=== PATIENT | female | born 1980 | race Caucasian/White ===

== ENCOUNTER 2020-12-22 13:36 | Emergency (ER) | payer OTHER, SELFPAY ==
[2020-12-22 13:53] VITALS: BP 125/81; PULSE 65; RESP 18; TEMP 36.7; O2SAT 99
--- NOTE | 2020-12-22 14:24 | ED.URI ---
HPI - URI/Sore Throat General Chief Complaint: Upper Respiratory Infection Stated Complaint: sore throat,fever Time Seen by Provider: 12/22/20 14:14 Source: patient and RN notes reviewed Mode of arrival: ambulatory Limitations: no limitations History of Present Illness HPI Narrative: 40-year-old female presents with concern for sore throat, fatigue, headache, body aches, intermittent nausea. Reports symptoms started 4 days ago. Reports she has not been vaccinated for Covid, she had Covid in March 2020. Reports recent travel. Reports she has been taking Tylenol and for her symptoms. She denies cough, shortness of breath, loss of sense of taste or smell, sinus drainage, tenderness. MD elicited complaint: sore throat Related Data Home Medications Medication Instructions Recorded Confirmed duloxetine 30 mg PO DAILY 12/22/20 12/22/20 famotidine 20 mg PO BID 12/22/20 12/22/20 metoprolol tartrate 12.5 mg PO BID 12/22/20 12/22/20 omeprazole 20 mg PO DAILY 12/22/20 12/22/20 topiramate 25 mg PO BID 12/22/20 12/22/20 trazodone 100 mg PO HS 12/22/20 12/22/20 Allergies Allergy/AdvReac Type Severity Reaction Status Date / Time metoclopramide Allergy Mild Unknown Verified 12/22/20 13:58 Sulfa (Sulfonamide Allergy Unknown Unknown Verified 12/22/20 13:58 Antibiotics) Review of Systems Review of Systems: CONSTITUTIONAL: Reports fatigue, malaise, or fever. EYES: Denies visual changes, redness, or discharge. ENT: Denies rhinorrhea, congestion, sinus pain, otalgia reports sore throat. CARDIOVASCULAR: Denies chest pain, palpitations, or edema. RESPIRATORY: Denies cough or dyspnea. GASTROINTESTINAL: Denies abdominal pain, nausea, vomiting, diarrhea SKIN: Denies rash or itching. MUSCULOSKELETAL: Reports myalgia. NEUROLOGIC: Reports headache. All systems reviewed & are unremarkable except as noted in HPI and below PMFSH Social History Social History Gender identity (if verbalized by the patient): Female Comments At time of signature, agree with nursing past medical, surgical, social and family history. There is no relevant family history pertinent to the presenting complaint Exam Narrative: GENERAL: Nontoxic-appearing, well-nourished, and in no acute distress. HEAD: Normocephalic EYES: PERRLA, conjunctivae clear ENT: Nares clear. Mucous membranes moist. TM pearly coelho with sharp light reflex bilaterally; no tragal tenderness. Oropharynx erythematous without lesions. Tonsils not enlarged and without exudate, no drooling, no hoarseness, no trismus, uvula midline. NECK: Supple. No lymphadenopathy CHEST: Clear to auscultation, breath sounds equal. No wheezing, rhonchi, rales, or stridor. No respiratory distress, speaks in full sentences. HEART: Regular rate and rhythm. No murmur heard. SKIN: Warm, dry, no rash. NEURO: Alert and oriented x3. PSYCH: Normal mood and affect Course Course Emergency Course: Patient is aware of diagnosis, understands and agrees to treatment plan. Anticipatory guidance given. Patient agrees to follow-up as directed and is aware of reasons to seek care at the emergency department. Portions of this record may have been created with voice recognition software Vital Signs Vital signs: Vital Signs Temperature 98.1 F 12/22/20 13:53 Pulse Rate 65 12/22/20 13:53 Respiratory Rate 18 12/22/20 13:53 Blood Pressure 125/81 12/22/20 13:53 Pulse Oximetry 99 12/22/20 13:53 Temperature 98.1 F 12/22/20 13:53 Pulse Rate 65 12/22/20 13:53 Respiratory Rate 18 12/22/20 13:53 Blood Pressure 125/81 12/22/20 13:53 Pulse Oximetry 99 12/22/20 13:53 Reviewed. MDM - URI/Sore Throat MDM Narrative Medical decision making narrative: Differential diagnosis considered: [place] virus, strep pharyngitis, allergic rhinitis, upper respiratory tract infection, sinusitis, rhinosinusitis, nasopharyngitis. viral pharyngitis, otitis media, otitis externa, pneumonia, bronchitis, viral cough syndrome
[2020-12-25 01:23] LABS: SARS-CoV-2 RNA PCR Negative
== END 2020-12-22 14:33 | disposition home or self-care (01) ==
PROVIDERS: Emergency Provider Nurse Practitioner; PCP Family Medicine
DX: J06.9 Acute upper respiratory infection, unspecified (principal); Z20.822 Contact with and (suspected) exposure to COVID-19
CPT/HCPCS: 87081; 87426; 87880; 99213; C9803; G0463; U0003; U0005

== ENCOUNTER 2021-05-30 14:32 | Emergency (ER) | payer OTHER, SELFPAY ==
[2021-05-30 14:44] VITALS: BP 137/91; PULSE 78; RESP 18; TEMP 36.6; O2SAT 100
--- NOTE | 2021-05-30 14:54 | ED.GENADULT ---
HPI - General Adult General Chief complaint: Upper Respiratory Infection Stated complaint: fever,sorethroat,cough Source: patient Mode of arrival: ambulatory Limitations: no limitations History of Present Illness HPI narrative: 40 y/o female. PMHx HTN, GERD, Former smoker. Presents to [facility] today with acute complaints of nasal congestions, sore throat, cough, as well as subjective fever at home. Manifestations have been present for the past 24 hours. She adds that her symptoms have started after being exposed to Covid 19 viral illness while at work. No ROJAS, focal weakness. No neck pain, nuchal rigidity, dysphagia. No chest pain, dyspnea, wheezing, palpitations, edema. No GI upset. Client requests Covid 19 viral testing. She is without additional acute c/o illness upon PE. Related Data Home Medications Medication Instructions Recorded Confirmed famotidine 20 mg PO BID 12/22/20 05/30/21 metoprolol tartrate 12.5 mg PO BID 12/22/20 05/30/21 omeprazole 20 mg PO DAILY 12/22/20 05/30/21 meclizine 25 mg PO TID 05/30/21 05/30/21 Allergies Allergy/AdvReac Type Severity Reaction Status Date / Time metoclopramide Allergy Mild Unknown Verified 12/22/20 13:58 Sulfa (Sulfonamide Allergy Unknown Unknown Verified 12/22/20 13:58 Antibiotics) Penicillins AdvReac Nausea and Verified 05/30/21 14:52 Vomiting Review of Systems Review of Systems: CONSTITUTIONAL: Positive fever. No chills, sweats. EYES: Denies visual changes, redness, discharge. ENT: Positve rhinorrhea, congestion, sore throat. No otalgia. CARDIOVASCULAR: Denies chest pain, palpitations, edema. RESPIRATORY: Denies dyspnea, wheezing. Positive cough GASTROINTESTINAL: Denies abdominal pain, nausea, vomiting, diarrhea. GENITOURINARY: Denies dysuria, hematuria, abnormal discharge SKIN: Denies rash or itching. MUSCULOSKELETAL: Denies acute back pain, joint pain, or myalgia. NEUROLOGIC: Denies numbness, or focal weakness. PSYCHIATRIC: Denies anxiety or depression. All systems reviewed & are unremarkable except as noted in HPI and below PMFSH Social History Social History Gender identity (if verbalized by the patient): Female Exam Narrative: GENERAL: This is a well-nourished, well-developed adult, in no apparent distress. HEAD: normocephalic, atraumatic. EYES: PERRL. Sclera clear/white. EARS: External ears normal, auditory canals clear and without drainage, TMs normal. NOSE: External nose normal. Positive Rhinorrhea, no obstruction, nares patent. THROAT: Mucous membranes moist, posterior pharynx erythematous. No exudates. NECK: Neck supple, non-tender without lymphadenopathy, masses or thyromegaly. CARDIOVASCULAR: Regular rate and rhythm without murmurs, gallops, or rubs. RESPIRATORY: Clear to auscultation. Breath sounds equal bilaterally. No wheezes, rales, or rhonchi. GASTROINTESTINAL: Abdomen soft, non-tender, nondistended. Bowel sounds are active. No guarding. SKIN: warm, intact with no suspicious lesions or rash, good texture and turgor. NEURO: Alert, active, and age appropriate. No focal neurologic deficits. EXTREMITIES: Negative. Course Course Level of Care: Express Care Visit Vital Signs Vital signs: Vital Signs Temperature 36.6 C 05/30/21 14:44 Pulse Rate 78 05/30/21 14:44 Respiratory Rate 18 05/30/21 14:44 Blood Pressure 137/91 H 05/30/21 14:44 Pulse Oximetry 100 05/30/21 14:44 Temperature 36.6 C 05/30/21 14:44 Pulse Rate 78 05/30/21 14:44 Respiratory Rate 18 05/30/21 14:44 Blood Pressure 137/91 H 05/30/21 14:44 Pulse Oximetry 100 05/30/21 14:44 The patient has been informed that they may have pre-hypertension or Hypertension based on a BP reading in the clinic. It is recommended that the patient call the primary care provider listed on their discharge instructions or a physician of their choice as soon as possible (within 1-2
[2021-05-31 18:24] LABS: SARS-CoV-2 RNA PCR Positive
== END 2021-05-30 14:55 | disposition home or self-care (01) ==
PROVIDERS: Emergency Provider Nurse Practitioner Adult Health; PCP Family Medicine
DX: Z20.822 Contact with and (suspected) exposure to COVID-19 (principal)
CPT/HCPCS: 99213; C9803; G0463; U0003; U0005

== ENCOUNTER 2022-02-06 18:22 | Emergency (ER) | payer OTHER, SELFPAY ==
--- NOTE | 2022-02-06 18:27 | ED.LOWEXIN ---
HPI - Extremity Injury (Lower) General Chief Complaint: Extremity Injury, Lower Stated Complaint: rt leg pain Time Seen by Provider: 02/06/22 18:27 Source: patient Mode of arrival: ambulatory Limitations: no limitations History of Present Illness HPI Narrative: Ms. Weiss is a 41-year-old female patient presenting to the clinic today with complaints of right sided leg pain that began this afternoon. She reports that she noticed some swelling to the right posterior medial thigh this afternoon and the area is tender to touch. She denies any fever, chills, shortness of breath, or chest pain. States she does have a history of DVTs in her family however she has never had a DVT herself. History of hysterectomy and she is a non-smoker. Related Data Home Medications Medication Instructions Recorded Confirmed famotidine 20 mg tablet 20 mg PO BID 12/22/20 05/30/21 omeprazole 20 mg capsule,delayed 20 mg PO DAILY 12/22/20 05/30/21 release diltiazem HCl 30 mg tablet 30 mg TID 02/06/22 02/06/22 Allergies Allergy/AdvReac Type Severity Reaction Status Date / Time metoclopramide Allergy Mild Unknown Verified 02/06/22 18:39 Sulfa (Sulfonamide Allergy Unknown Unknown Verified 02/06/22 18:39 Antibiotics) Penicillins AdvReac Nausea and Verified 02/06/22 18:39 Vomiting Review of Systems Review of Systems: Pertinent positives per HPI. Patient denies any fever, chills, rash, headache, visual changes, dizziness, cough, runny nose, sore throat, shortness of breath, chest pain, palpitations, nausea, vomiting, diarrhea, constipation, abdominal pain, or any urinary issues. PMFSH Social History Social History Gender identity (if verbalized by the patient): Female Comments At the time of my signature, I reviewed and agree with the nursing past medical, surgical, social, and family history. There is no relevant family history pertinent to the patient complaint. Exam Narrative: General: Well-developed, well nourished, in no apparent distress Head: Normocephalic, atraumatic. Cardio: Regular rate and rhythm, s1 and s2 normal, no murmur appreciated. Resp: Clear to auscultation bilaterally, no rhonchi, rales, wheezing or rubs. Musculoskeletal: No deformity, 1 cm x 1 cm soft tissue swelling to the right posterior medial thigh -tender to palpation, grossly normal range of motion, muscle strength strong and equal, peripheral pulse strong, no edema, no cyanosis, normal gait and station Course Course Emergency Course: Portions of this record may have been created with voice recognition software. Level of Care: Express Care Visit Vital Signs Vital signs: Vital signs reviewed MDM - Extremity Injury (Lower) MDM Narrative Medical decision making narrative: At the time of visit patient is resting comfortably on the exam table. She has a tender 1 x 1 cm soft tissue swelling to the right posterior medial thigh-the area is not erythemic or red. There is no swelling in the right lower extremity. I suspect this may be onset of a soft tissue mass, cyst, or abscess. Discussed follow-up with PCP if symptoms persist or going to the emergency room if symptoms worsen and patient voiced understanding of the discharge instructions and agrees to treatment plan. I do not feel as though we need to send her to the ED for a ultrasound or Doppler at this time. Differential Diagnosis Differential diagnosis: Likely other (Soft tissue subcutaneous mass, cyst, abscess) Discharge Plan Discharge Clinical Impression: Subcutaneous mass of right lower extremity Patient Disposition: Home, Self-Care Condition: Stable Instructions: Antibiotic Form, Soft Tissue Mass (ED) Additional Instructions: This could possibly just be a start of a cyst or an abscess Recommend following up with PCP if symptoms worsen-May need ultrasound or Doppler of the area Follow-up with your PCP in 3 to 5
[2022-02-06 18:29] VITALS: BP 140/97; PULSE 89; RESP 18; TEMP 36.7; O2SAT 100
== END 2022-02-06 18:45 | disposition home or self-care (01) ==
PROVIDERS: Emergency Provider Nurse Practitioner Family; PCP Family Medicine
DX: R22.41 Localized swelling, mass and lump, right lower limb (principal); I34.1 Nonrheumatic mitral (valve) prolapse; Z87.891 Personal history of nicotine dependence; K21.9 Gastro-esophageal reflux disease without esophagitis; M79.7 Fibromyalgia; N80.9 Endometriosis, unspecified
CPT/HCPCS: 99212; G0463

== ENCOUNTER 2022-02-27 15:55 | Outpatient (CLI) | payer OTHER, SELFPAY ==
--- NOTE | ~2022-02-27 | US_ITS ---
EXAMINATION: US venous doppler [facility] DATE: 02/27/2022 16:32 INDICATION: Bilateral lower limb swelling TECHNIQUE: Grayscale ultrasound images without and with compression and Doppler ultrasound images of the bilateral lower extremity veins were obtained. COMPARISON: None. FINDINGS: The visualized portions of right common femoral vein, profunda (deep) femoral vein, femoral vein, pop liteal vein, posterior tibial veins, peroneal veins, gastrocnemius vein and greater saphenous vein ou tflow are patent. The visualized portions of left common femoral vein, profunda femoral vein, femoral vein, popliteal v ein, posterior tibial veins, peroneal veins, gastrocnemius vein and greater saphenous vein outflow ar e patent. IMPRESSION: 1. No deep venous thrombosis in either lower limb. Reviewed, dictated and finalized at location A.
== END 2022-02-27 15:56 | disposition home or self-care (01) ==
LOC: ANHIMG 15:59
PROVIDERS: PCP Family Medicine; Visit Provider Family Medicine
DX: M79.89 Other specified soft tissue disorders (principal)
CPT/HCPCS: 93970

== ENCOUNTER 2022-04-30 15:48 | Emergency (ER) | payer OTHER, SELFPAY ==
--- NOTE | ~2022-04-30 | XR_ITS ---
EXAMINATION: XR chest 2V DATE: 04/30/2022 16:48 INDICATION: Right middle lobe coarseness and cough TECHNIQUE: PA and lateral views of the chest are obtained. COMPARISON: 03/12/2019 FINDINGS: The lungs are free of acute opacities. No pleural effusion or pneumothorax. The cardiomedia stinal silhouette is normal. There is mild thoracic spondylosis. IMPRESSION: 1. No acute cardiopulmonary abnormality. Reviewed, dictated and finalized at location B. [employer]
[2022-04-30 16:07] VITALS: BP 127/83; PULSE 86; RESP 18; TEMP 36.9; O2SAT 99
--- NOTE | 2022-04-30 16:29 | ED.URI ---
HPI - URI/Sore Throat General Chief Complaint: Upper Respiratory Infection Stated Complaint: sorethroat,cough Time Seen by Provider: 04/30/22 16:29 Source: patient, RN notes reviewed and old records reviewed Mode of arrival: ambulatory Limitations: no limitations History of Present Illness HPI Narrative: 41-year-old female who presents to [facility] with complaints of sore throat which started on Thursday with cough starting on Thursday which is tight frequent and hacking. Patient states she has a lot of sinus drainage also which is very thick. Patient reports she has a history of bronchitis and she is not sleeping well due to cough. Patient reports that she has no fever, body aches or chills, reports general malaise and fatigue. Patient states that she has been taking Benadryl and using nasal spray. MD elicited complaint: cough, sore throat, rhinorrhea and nasal congestion Pertinent past history: other (bronchitis) Onset (ago): day(s) (5) Able to tolerate fluids by mouth: Yes Treatments prior to arrival: other (Benadryl,nasal spray and cough drops) Related Data Home Medications Medication Instructions Recorded Confirmed famotidine 20 mg tablet 20 mg PO BID 12/22/20 04/30/22 omeprazole 20 mg capsule,delayed 20 mg PO DAILY 12/22/20 04/30/22 release diltiazem HCl 30 mg tablet 30 mg TID 02/06/22 04/30/22 Allergies Allergy/AdvReac Type Severity Reaction Status Date / Time metoclopramide Allergy Mild Unknown Verified 04/30/22 17:20 Sulfa (Sulfonamide Allergy Unknown Unknown Verified 04/30/22 17:20 Antibiotics) Penicillins AdvReac Nausea and Verified 04/30/22 17:20 Vomiting Review of Systems Review of Systems: CONSTITUTIONAL: Reports malaise, no chills, sweats, or fever.fatigue reported EYES: Denies visual changes, redness, or discharge. ENT: Reports rhinorrhea, congestion, sinus pain, no otalgia positive for sore throat. CARDIOVASCULAR: Denies chest pain, palpitations, or edema. RESPIRATORY: Reports cough, hacking? Denies dyspnea. GASTROINTESTINAL: Denies abdominal pain, nausea, vomiting, diarrhea SKIN: Denies rash or itching. MUSCULOSKELETAL: Denies myalgia. NEUROLOGIC: Reports mild headache. All systems reviewed & are unremarkable except as noted in HPI and below PMFSH Past Medical History Medical History (Updated 05/01/22 @ 08:14 by Becky Kessler NP) Bronchitis GERD (gastroesophageal reflux disease) Hypertension Surgical History Surgical History (Updated 05/01/22 @ 08:13 by Becky Kessler NP) H/O: hysterectomy Hx of appendectomy Hx of cholecystectomy Hx of left knee surgery Hx of spinal surgery Social History Social History (Updated 05/01/22 @ 08:10 by Becky Kessler NP) Smoking status: Former smoker Tobacco type: cigarettes Alcohol intake: unknown Substance use type: does not use Gender identity (if verbalized by the patient): Female Comments At time of signature, agree with nursing past medical, surgical, social and family history. There is no relevant family history pertinent to the presenting complaint Exam Narrative: GENERAL: Well-appearing, well-nourished, and in no acute distress. HEAD: Normocephalic EYES: PERRLA, conjunctivae clear ENT: Nares clear, turbinates edematous and erythematous, thick yellow tinged discharge. Mucous membranes moist. TM pearly coelho with dull light reflex bilaterally; no tragal tenderness. Oropharynx erythematous without lesions. Tonsils red,not enlarged and without exudate, no drooling, no hoarseness, no trismus, uvula midline.post nasal drainage. NECK: Supple. No lymphadenopathy CHEST: Clear to auscultation, breath sounds equal. No wheezing, rhonchi, rales, or stridor. No respiratory distress, speaks in full sentences. HEART: Regular rate and rhythm. No murmur heard. SKIN: Warm, dry, no rash. NEURO: Alert and oriented x3. PSYCH: Normal mood and affect Course Course Emergency Course: [place]
== END 2022-04-30 17:29 | disposition home or self-care (01) ==
PROVIDERS: Emergency Provider Registered Nurse; PCP Family Medicine
DX: J40 Bronchitis, not specified as acute or chronic (principal); J32.9 Chronic sinusitis, unspecified; I10 Essential (primary) hypertension; K21.9 Gastro-esophageal reflux disease without esophagitis; Z87.891 Personal history of nicotine dependence
CPT/HCPCS: 71046; 87081; 87880; 99213; G0463

== ENCOUNTER 2022-08-28 01:27 | Day surgery (SDC) | payer OTHER, SELFPAY ==
[2022-08-20 12:27] VITALS: BMI 31.1
--- NOTE | 2022-08-27 20:26 | PM.HPGS ---
History of Present Illness History of Present Illness Consent: Risks, benefits, and alternatives have been discussed and questions answered. Patient agrees to proceed with procedure. Chief complaint: Other fecal abnormalities Narrative: Brenda Weiss is a 41 year old female referred for colonoscopy. She has had a change in her bowel habits. For 1 thing she needs to insert her finger into the vagina to help the stool come out. She has had pain in the anal area. She saw a surgeon who said she has a slight tear but not significant. She has pain in the perineal area which is present not only with bowel movements. His a sharp stabbing pain that comes on spontaneously. Review of Systems Review of Systems: All systems reviewed & are unremarkable except as noted in HPI and below PMFSH Past Medical History Medical History Bronchitis GERD (gastroesophageal reflux disease) History of blood transfusion Hypertension IBS (irritable bowel syndrome) Premature ventricular contraction Watermelon stomach Surgical History Surgical History H/O: hysterectomy Hx of appendectomy Hx of cholecystectomy Hx of left knee surgery Hx of spinal surgery Family History Family History Father Acute myocardial infarction Hypertension Unknown Diabetes mellitus Grandparent Carcinoma of colon Sibling Hypertension Social History Social History Smoking packs per day: 0.5 Smoking cigarettes per day: 10.0 Years smoked: 20 Smoking pack-years: 10.00 Smoking status: Former smoker Tobacco type: cigarettes Smoking end date: 05/04/15 Alcohol intake: current Alcohol use details: socially Substance use: never Substance use type: does not use Living arrangements: with family Gender identity (if verbalized by the patient): Female Spiritual care concerns: No Meds Home Medications and Allergies Home Medications Medication Instructions Recorded Confirmed Type diltiazem HCl 30 mg tablet 30 mg PO .COMPLEX 08/13/22 08/28/22 History docusate sodium 100 mg capsule 100 mg PO BID #90 caps 08/13/22 08/20/22 Rx famotidine 20 mg tablet 40 mg PO BID 08/13/22 08/20/22 History omeprazole 20 mg capsule,delayed 40 mg PO DAILY 08/13/22 08/20/22 History release Allergies Allergy/AdvReac Type Severity Reaction Status Date / Time metoclopramide Allergy Mild Unknown Verified 08/28/22 10:33 Sulfa (Sulfonamide Allergy Unknown Unknown Verified 08/28/22 10:33 Antibiotics) Exam Resp: Auscultation: clear to auscultation bilaterally Cardio: Rate: regular rate Rhythm: regular rhythm GI: GI Palp: Yes Soft to palpation and No Tenderness to palpation present (GI) Assessment and Plan Assessment and plan (1) Change in stool: Code(s): R19.5 - Other fecal abnormalities Status: Acute Assessment and Plan: Colonoscopy with possible biopsy or polypectomy or cautery or injection of substances.
[2022-08-28] MEDS: LACTATED RINGERS 1,000 ML 150 ML IV CONT (10:42)
[2022-08-28 10:45] VITALS: BP 123/86; PULSE 86; RESP 18; TEMP 36.1; O2SAT 100
--- NOTE | 2022-08-28 10:53 | WPDANESEPPF ---
Anes - Initial Pre Proc Eval Procedure: Operation Date: 08/28/22 12:00 Proposed Procedures p Colonoscopy - Osmar Sandhu MD Date/Time: 08/28/22 10:53 Surgeon: Osmar Sandhu MD Pre Op Diagnosis: Other fecal abnormalities Patient Data Age: 41 Gender: F Height: 1.65 m Weight: 53.3 kg Last Vital Signs Temp 36.1 C L 08/28/22 10:45 Pulse 86 08/28/22 10:45 Resp 18 08/28/22 10:45 BP 123/86 08/28/22 10:45 Pulse Ox 100 08/28/22 10:45 O2 Del Method Room Air 08/28/22 10:45 Allergies Allergy/AdvReac Type Severity Reaction Status Date / Time metoclopramide Allergy Mild Unknown Verified 08/28/22 10:33 Sulfa (Sulfonamide Allergy Unknown Unknown Verified 08/28/22 10:33 Antibiotics) Home Medications Medication Instructions Recorded Confirmed Type diltiazem HCl 30 mg tablet 30 mg PO .COMPLEX 08/13/22 08/28/22 History docusate sodium 100 mg capsule 100 mg PO BID #90 caps 08/13/22 08/20/22 Rx famotidine 20 mg tablet 40 mg PO BID 08/13/22 08/20/22 History omeprazole 20 mg capsule,delayed 40 mg PO DAILY 08/13/22 08/20/22 History release Patient hx anesthesia problems: post op nausea/vomiting Family hx anesthesia problems: none Results Review: All pre-operative results and documents have been reviewed as part of the pre-operative evaluation. [facility] Past Medical History Medical History Bronchitis GERD (gastroesophageal reflux disease) History of blood transfusion Hypertension IBS (irritable bowel syndrome) Premature ventricular contraction Watermelon stomach Surgical History Surgical History H/O: hysterectomy Hx of appendectomy Hx of cholecystectomy Hx of left knee surgery Hx of spinal surgery Family History Family History Father Acute myocardial infarction Hypertension Unknown Diabetes mellitus Grandparent Carcinoma of colon Sibling Hypertension Social History Social History Smoking packs per day: 0.5 Smoking cigarettes per day: 10.0 Years smoked: 20 Smoking pack-years: 10.00 Smoking status: Former smoker Tobacco type: cigarettes Smoking end date: 05/04/15 Alcohol intake: current Alcohol use details: socially Substance use: never Substance use type: does not use Living arrangements: with family Gender identity (if verbalized by the patient): Female Spiritual care concerns: No Anes - Eval Final PreProcedure Day of Procedure 08/28/22 10:53 Patient weight: normal Heart: regular rate and rhythm Lungs: clear to auscultation Airway: Mallampati scale class II Neurological: alert and oriented Last oral intake: >/= 8 hours ASA classification: III Emergent: no Anesthetic plan: proceed Anesthesia type and monitoring: general GIVS and standard monitoring Results Review: All pre-operative results and documents have been reviewed as part of the pre-operative evaluation. Informed Consent: The patient's anesthetic plan and its attendant risks and benefits were discussed with the patient/family/POA. Questions were solicited and answers provided to the satisfaction of the patient/family/POA.
[2022-08-28 11:12] VITALS: BP 104/71; PULSE 75; RESP 20; O2SAT 98
[2022-08-28 11:22] VITALS: BP 111/75; PULSE 76; RESP 15; O2SAT 98
[2022-08-28 11:33] VITALS: BP 122/84; PULSE 80; RESP 17; O2SAT 100
== END 2022-08-28 12:13 | disposition home or self-care (01) ==
PROVIDERS: PCP Family Medicine; Visit Provider Internal Medicine Gastroenterology
PROC: 0DJD8ZZ Inspection of Lower Intestinal Tract, Via Natural or Artificial Opening Endoscopic (ICD-10-PCS; CPT 45378; principal; 2022-08-28 12:00)
DX: Z12.11 Encounter for screening for malignant neoplasm of colon (principal); R19.4 Change in bowel habit; K21.9 Gastro-esophageal reflux disease without esophagitis; I10 Essential (primary) hypertension; Z87.891 Personal history of nicotine dependence
CPT/HCPCS: 45378; J2704; J7120

== ENCOUNTER 2022-09-02 09:28 | Outpatient (CLI) | payer OTHER, SELFPAY ==
--- NOTE | 2022-09-02 09:42 | ECG_ITS ---
Measurements Intervals [place] Rate: 64 P: 45 MT: 151 QRS: 45 QRSD: 78 T: 54 QT: 373 QTc: 387 Interpretive Statements SINUS RHYTHM BASELINE ARTIFACT- I, II, III, AVR, AVL, AVF NORMAL ECG NO PREVIOUS ECG AVAILABLE FOR COMPARISON Electronically Signed On 09-02-2022 11:22:27 CDT by Nghia Mcgovern D.O.
[2022-09-02 10:03] LABS: Basophils Absolute Auto 0.1 K/mm3 (0.0-0.1); Basophils Percent Auto 0.9 % (0.2-1.2); Eosinophils Absolute Auto 0.1 K/mm3 (0-0.3); Eosinophils Percent Auto 1.9 % (0-4.4); Hematocrit 38.8 % (37.0-47.0); Hemoglobin 13.3 g/dL (12.0-15.0); Immature Granulocyte Absolute 0.01 K/mm3 (0.00-0.031); Immature Granulocyte Percent A 0.2 % (0-0.5); Lymphocytes Percent Auto 35.3 % (18.3-44.2); Mean Corpuscular HGB Conc 34.3 g/dl (32-36); Mean Corpuscular Hemoglobin 29.8 pg (26-34); Mean Corpuscular Volume 86.8 fl (80-100); Mean Platelet Volume 11.8 fl (7.4-10.4); Monocytes Absolute Auto 0.5 K/mm3 (0.1-0.6); Monocytes Percent Auto 8.3 % (2.6-8.5); Neutrophils Percent Auto 53.4 % (45.5-73.1); Platelet Count Result 224 k/mm3 (150-375); Red Blood Count 4.47 M/mm3 (4.2-5.4); Red Cell Distribution Width 13.5 % (11.5-14.5); White Blood Count 5.7 K/mm3 (4.5-10.0)
== END 2022-09-02 09:29 | disposition home or self-care (01) ==
LOC: ANHSURGERY 09:32
PROVIDERS: PCP Family Medicine; Visit Provider Obstetrics & Gynecology
DX: Z01.812 Encounter for preprocedural laboratory examination (principal); Z01.810 Encounter for preprocedural cardiovascular examination; N81.6 Rectocele; I49.3 Ventricular premature depolarization
CPT/HCPCS: 36415; 85025; 86850; 86900; 86901; 93005

== ENCOUNTER 2022-09-08 00:16 | Day surgery (SDC) | payer OTHER, SELFPAY ==
[2022-09-01 13:02] VITALS: BMI 30.8
--- NOTE | 2022-09-01 13:09 | PC.NURSE ---
Report to the Outpatient Waiting Room, entrance under the green pavilion located off [facility], at time 6:00 on date 09/08/22. Planned Procedure Time: 7:30. Time changes happen often and if your time is changed the preop area will call you the afternoon before. - You and your visitor will be asked to self-screen and do not enter if you have any COVID symptoms. - A mask is optional within the hospital at this time. Patients may have clear liquids (water, carbonated beverages, clear teas, apple juice) until 3 hours prior to surgery (4:30) with a maximum of 20 ounces. - No food from midnight until time of surgery Take the following medications with a SIP of water the morning of surgery: DILTIAZEM DO NOT STOP ANY OF YOUR OTHER PRESCRIPTION MEDICATIONS PRIOR TO SURGERY EXCEPT THE FOLLOWING Medications to discontinue per physician: N/A Date to take last dose: N/A Please no make-up, nail gibraltarian, hairspray, perfume, deodorant, or body powder the day of surgery. No jewelry (including any body piercings) or valuables the day of surgery, leave them at home. Please take a shower or bath the night before, or the morning of, surgery with an antibacterial soap. Wear comfortable, loose fitting clothing. - Jewelry must be removed prior to entering the operating room. Rings and piercings that are not removed may be cut off. - The hospital will not accept responsibility for valuables. - Please leave all valuables, including medications, at home the day of surgery. If you are going home after surgery, a licensed spike driver must drive you home. - NO public transportation without another adult if you receive anesthesia. - We recommend that an adult stay with you for 24 hours following discharge. - We also recommend that you do not drive, make important decision, drink alcoholic beverages, or take any drugs that were not prescribed by your health care provider for at least 24 hours after your discharge time. Follow any additional instructions given to you from your surgeon. If you or anyone in your household have experienced Covid symptoms in the past week, please notify your surgeon or the nurse liaison at the phone number below for possible testing. Telephone instructions given to PT - DIYA STODDARD and asked if any additional questions and then verbalized understanding. Patient advised to call surgeon office or pre surgery nurse liaison [phone] if any additional questions.
--- NOTE | 2022-09-05 09:46 | P.HP_ITS ---
H&P: HPI History of Present Illness Date/Time: 09/05/22 09:46 Chief Complaint: pelvic pain/ rectocele/stress incontinence Narrative: said 41-year-old female status post hysterectomy bilateral salpingo-oophorecto my admitted for DVT laparoscopy and rectocele repair. [facility] Past Medical History Medical History Bronchitis GERD (gastroesophageal reflux disease) History of blood transfusion Hypertension IBS (irritable bowel syndrome) Premature ventricular contraction Watermelon stomach Surgical History Surgical History H/O: hysterectomy Hx of appendectomy Hx of cholecystectomy Hx of left knee surgery Hx of spinal surgery Family History Family History Father Acute myocardial infarction Hypertension Unknown Diabetes mellitus Grandparent Carcinoma of colon Sibling Hypertension Social History Social History Smoking packs per day: 0.5 Smoking cigarettes per day: 10.0 Years smoked: 20 Smoking pack-years: 10.00 Smoking status: Former smoker Tobacco type: cigarettes Smoking end date: 05/04/18 Alcohol intake: current Alcohol use details: 2/MONTH Substance use: never Substance use type: does not use Living arrangements: with family Gender identity (if verbalized by the patient): Female Spiritual care concerns: No Meds Home Medications and Allergies Home Medications Medication Instructions Recorded Confirmed Type diltiazem HCl 30 mg tablet 30 mg PO .COMPLEX 08/13/22 09/01/22 History docusate sodium 100 mg capsule 100 mg PO BID #90 caps 08/13/22 09/01/22 Rx famotidine 20 mg tablet 40 mg PO BID 08/13/22 09/01/22 History omeprazole 20 mg capsule,delayed 40 mg PO DAILY 08/13/22 09/01/22 History release Allergies Allergy/AdvReac Type Severity Reaction Status Date / Time metoclopramide Allergy Mild Other Verified 09/01/22 13:02 Sulfa (Sulfonamide Allergy Unknown Unknown Verified 09/01/22 13:02 Antibiotics) Exam Const: General: cooperative, healthy appearing and comfortable Nutritional Appearance: average body habitus Orientation/consciousness: oriented to person, oriented to place and oriented to time Resp: Effort & Inspection: normal respiratory effort Cardio: Rate: regular rate Rhythm: regular rhythm Heart sounds: S1 normal heart sound present and S2 normal heart sound present GI: Inspection: normal to inspection : External Female Exam: normal external appearance Speculum Exam - Vagina: normal appearance of the vagina and other (Small rectocele) Speculum Exam - Cervix: Cervix absent Bimanual exam- vagina & uterus: uterus absent Bimanual Exam- Adnexa, other: normal adnexae Assessment and Plan Assessment and plan (1) Rectocele: Code(s): N81.6 - Rectocele Status: Acute (2) TAWANNA (stress urinary incontinence, female): Code(s): N39.3 - Stress incontinence (female) (male) Status: Acute (3) Pelvic pain: Code(s): R10.2 - Pelvic and perineal pain Status: Acute Plan laparoscopy/ rectocele repair/ suburethral sling
[2022-09-08] VITALS (16 sets, daily range): BP systolic 92–127; BP diastolic 57–82; PULSE 65–97; RESP 14–22; TEMP 36.2–37; O2SAT 97–100
--- NOTE | 2022-09-08 06:24 | WPDHPUPDATE1 ---
History and Physical Update Update Date/Time: 09/08/22 06:24 History and Physical has been reviewed, including an updated exam of the patient. There are NO changes in the patient's condition. Risks, benefits, and alternatives have been discussed and questions answered. Patient agrees to proceed with procedure.
[2022-09-08] MEDS: LACTATED RINGERS 1,000 ML 30 ML IV CONT ×2 (06:27→09:57)
[2022-09-08] MEDS: KETOROLAC 15 MG/ML VIAL (*BKC) IV PUSH (06:32)
[2022-09-08] MEDS: SCOPOLAMINE 1.5 MG PATCH TRANSDERM (06:32)
[2022-09-08] MEDS: ACETAMINOPHEN 500 MG TABLET 1000 MG PO (06:32)
--- NOTE | 2022-09-08 07:44 | WPDANESEPPF ---
Anes - Initial Pre Proc Eval Procedure: Operation Date: 09/08/22 07:30 Proposed Procedures p Laparoscopic Lysis of Adhesions, - Kevin Rob MD s Rectocele Repair with Tension Free Vaginal Taping - Kevin Rob MD Date/Time: 09/08/22 07:44 Surgeon: Kevin Rob MD Pre Op Diagnosis: pelvic pain, ulises, rectocele Patient Data Age: 41 Gender: F Height: 1.65 m Weight: 83.8 kg Last Vital Signs Temp 36.2 C L 09/08/22 06:17 Pulse 72 09/08/22 06:17 Resp 16 09/08/22 06:17 BP 127/82 09/08/22 06:17 Pulse Ox 100 09/08/22 06:17 O2 Del Method Room Air 09/08/22 06:17 Allergies Allergy/AdvReac Type Severity Reaction Status Date / Time metoclopramide Allergy Mild Other Verified 09/08/22 07:04 Sulfa (Sulfonamide Allergy Unknown Unknown Verified 09/08/22 07:04 Antibiotics) Home Medications Medication Instructions Recorded Confirmed Type diltiazem HCl 30 mg tablet 30 mg PO .COMPLEX 08/13/22 09/08/22 History docusate sodium 100 mg capsule 100 mg PO BID #90 caps 08/13/22 09/08/22 Rx famotidine 20 mg tablet 40 mg PO BID 08/13/22 09/08/22 History omeprazole 20 mg capsule,delayed 40 mg PO DAILY 08/13/22 09/08/22 History release hydrocodone 5 mg-acetaminophen 325 1 tablet PO Q4H PRN pain #20 tabs 09/08/22 Rx mg tablet Patient hx anesthesia problems: none Family hx anesthesia problems: none Results Review: All pre-operative results and documents have been reviewed as part of the pre-operative evaluation. [facility] Past Medical History Medical History Bronchitis GERD (gastroesophageal reflux disease) History of blood transfusion Hypertension IBS (irritable bowel syndrome) Premature ventricular contraction Watermelon stomach Surgical History Surgical History H/O: hysterectomy Hx of appendectomy Hx of cholecystectomy Hx of left knee surgery Hx of spinal surgery Family History Family History Father Acute myocardial infarction Hypertension Unknown Diabetes mellitus Grandparent Carcinoma of colon Sibling Hypertension Social History Social History Smoking packs per day: 0.5 Smoking cigarettes per day: 10.0 Years smoked: 20 Smoking pack-years: 10.00 Smoking status: Former smoker Tobacco type: cigarettes Smoking end date: 05/04/18 Alcohol intake: current Alcohol use details: 2/MONTH Substance use: never Substance use type: does not use Living arrangements: with family Gender identity (if verbalized by the patient): Female Spiritual care concerns: No Anes - Eval Final PreProcedure Day of Procedure 09/08/22 07:44 Patient weight: obese Heart: regular rate and rhythm Lungs: clear to auscultation Airway: Mallampati scale class II Neurological: alert and oriented Last oral intake: >/= 8 hours ASA classification: III Emergent: no Anesthetic plan: proceed Anesthesia type and monitoring: general ETT and standard monitoring Results Review: All pre-operative results and documents have been reviewed as part of the pre-operative evaluation. Informed Consent: The patient's anesthetic plan and its attendant risks and benefits were discussed with the patient/family/POA. Questions were solicited and answers provided to the satisfaction of the patient/family/POA.
[2022-09-08] MEDS: ceFAZolin 2 GM/D5W 50 ML 2 GM/50 ML BAG IVPB (08:09)
--- NOTE | 2022-09-08 09:32 | P.OP_ITS ---
Procedure Note - Detailed Date of Procedure 09/08/22 Pre-op Diagnosis pelvic pain, ulises, rectocele Post-op Diagnosis Other (Pelvic adhesions) Procedure Performed laparoscopic extensive lysis of adhesions/ cystoscopy/ tension-free vaginal tape/posterior repair Surgeon Kevin Rob MD Anesthesia General Indications this is a 41-year-old female status post hysterectomy bilateral salpingo- oophorectomy with pelvic pain and suspected adhesions, stress urinary incontinence, and a very small rectocele Findings pelvic adhesions were seen to the anterior abdominal wall. Uterus ovaries and tubes surgically absent. Description of Procedure Patient was prepped and draped in the normal sterile fashion placed in dorsal lithotomy position. Under excellent general trach anesthesia weighted speculum placed in posterior fornix vagina. Bladder draining clear urine old sponge stick was placed. The weighted speculum removed and gloves were changed. A supraumbilical incision made the Veress needle the. Abdomen filled with CO2 gas [id number]. The 5mm trocar advanced under direct visualization assuring no injury. A left lower quadrant incision made and the trocar the 5mm trocar advanced in the abdomen under direct visualization assuring no injury. A right lower quadrant incision made the 5mm trocar advanced under direct visualization. Anteriorly there were large amount of pelvic adhesions using the Melo stretch and sharply dissecting these were sharply dissected away from the left lateral sidewall in the anterior and abdomen. Irrigation was undertaken until clear and the uterine pelvis appeared clear at that point. The patient was returned back to supine to supine position. The trocars removed after removing gas from the abdomen. The incisions closed with 4 Monocryl and glue. Attention was turned to the vaginal portion of the procedure. Bladder was drained of clear urine with an 18 [place] catheter. A and infra urethral incision made and the lateral bladder space and by blunt dissection. The bladder catheter guide was placed and the urethra retracted laterally the left retropubic bladder space entered followed by entry in the right retropubic bladder space and entering through the fascia and skin bilaterally. The 18 [place] catheter was removed and the 75degree scope was placed no injury seen. This was removed the catheter was replaced. The tension-free tape was brought up to the tightness of an open pee on clamped. This plastic removed and tape cut at the surface of the suprapubic area. These were glued and 3-0 Vicryl was used to close the small suburethral incision. Attention was then turned to the posterior para there was a very small rectocele present. The perineal body was grasped and enio shape formed. Sharply dissecting and the und erlying peritoneum from the mucosa was undertaken. This was brought up to top the vagina the muscles were brought medially by [id number] Vicryl sh. This was followed by trimming the excess vaginal tissue and closing in continuous running all locking fashion from superior portion to most caudal position all pedicles appeared dry. The blood loss for the procedure was 100cc. Sponge, needle, instrument counts were correct. There were no immediate complications Estimated Blood Loss 1 IV Fluids 100 Drains No Packing No Pathology Yes Complications No immediate complications Condition Stable Disposition PACU
[2022-09-08] MEDS: ONDANSETRON INJ 4 MG/2 ML VIAL IV PUSH ×2 (09:42→15:52)
[2022-09-08] MEDS: fentaNYL CITRATE INJ (*CRX) 100 MCG/2 ML VIAL 25 MCG IV PUSH ×8 (09:44→10:13)
[2022-09-08] MEDS: HYDROmorphone HCL INJ (*CRX) 1 MG/ML SYR 0.5 MG IV PUSH ×4 (10:21→11:17)
[2022-09-08] MEDS: diphenhydrAMINE HCl INJ 50 MG/ML VIAL 25 MG IV PUSH (10:52)
[2022-09-08] MEDS: FAMOTIDINE 20 MG/2 ML VIAL IV PUSH (11:14)
[2022-09-08] MEDS: KETOROLAC 30 MG/ML VIAL (*BKC) IV PUSH ×2 (12:43→19:18)
[2022-09-08] MEDS: DEXTROSE 5%/LACTATED RINGERS 1,000 ML 125 ML IV CONT ×2 (12:44→21:12)
[2022-09-08] MEDS: MEPERIDINE HCL INJ (*CRX) 50 MG/ML AMPUL 25 MG IV PUSH ×2 (13:59→17:59)
[2022-09-08] MEDS: DOCUSATE SODIUM 100 MG CAPSULE PO (17:59)
[2022-09-08] MEDS: dilTIAZem HCL 30 MG TABLET PO (18:01)
[2022-09-08] MEDS: PROMETHAZINE HCL 25 MG/ML AMPUL 12.5 MG IV PUSH (19:19)
[2022-09-09] VITALS: BP 99/61; PULSE 61; RESP 18; TEMP 36.4; O2SAT 98
[2022-09-09] MEDS: KETOROLAC 30 MG/ML VIAL (*BKC) IV PUSH (02:40)
[2022-09-09 04:00] VITALS: BP 95/50; PULSE 66; RESP 18; TEMP 36.5; O2SAT 98
--- NOTE | 2022-09-09 06:13 | PM.GYNPNOP ---
RAIL CAR OPERATOR - A/P Postoperative Procedures: Procedures Operation Date: 09/08/22 08:00 Actual Procedure Side Surgeon p Laparoscopic Lysis of Adhesions, Not Applicable Kevin Rob MD s Rectocele Repair with Tension Free Vaginal Taping Not Applicable Kevin Rob MD Postoperative day: 1 Postoperative status: doing well Postoperative plan: routine post-op care, see orders and discharge Time Spent With Patient Time: Total time spent is greater than 50% in coordination of care (as documented) at patient's floor/unit and/or counseling patient: Time with patient: less than 15 minutes RAIL CAR OPERATOR- PN:Subj Post-Op Subjective Date/time seen: 09/09/22 06:13 Subjective: patient reports feeling better, pain is well controlled and patient is tolerating oral intake Exam Const: General: cooperative, healthy appearing and comfortable Nutritional Appearance: average body habitus Orientation/consciousness: oriented to person, oriented to place and oriented to time HENMT: Head: normal to inspection Resp: Effort & Inspection: normal respiratory effort Cardio: Rate: regular rate Rhythm: regular rhythm Heart sounds: S1 normal heart sound present and S2 normal heart sound present GI: Inspection: normal to inspection and incision (cdi) RAIL CAR OPERATOR - PN: Obj Data Vital Signs Vital Signs: Vital Signs - 24 hr 09/08/22 06:17 09/08/22 09:35 09/08/22 09:45 Temperature 97.1 F L 98.2 F Pulse Rate 72 97 93 Respiratory Rate 16 20 18 Blood Pressure 127/82 110/73 122/80 Pulse Oximetry 100 100 100 Oxygen Delivery Room Air Simple Face Mask Simple Face Mask Oxygen Flow Rate 8 8 09/08/22 10:00 09/08/22 10:15 09/08/22 10:30 Temperature Pulse Rate 66 77 80 Respiratory Rate 16 18 20 Blood Pressure 123/77 112/73 112/73 Pulse Oximetry 100 100 99 Oxygen Delivery Nasal Cannula Nasal Cannula Nasal Cannula Oxygen Flow Rate 2 2 2 09/08/22 10:45 09/08/22 11:00 09/08/22 11:15 Temperature Pulse Rate 88 68 83 Respiratory Rate 20 20 18 Blood Pressure 116/79 113/71 115/60 Pulse Oximetry 99 98 98 Oxygen Delivery Nasal Cannula Nasal Cannula Nasal Cannula Oxygen Flow Rate 2 2 2 09/08/22 11:30 09/08/22 11:45 09/08/22 12:00 Temperature Pulse Rate 68 96 67 Respiratory Rate 14 19 22 H Blood Pressure 108/63 112/69 108/57 L Pulse Oximetry 98 98 97 Oxygen Delivery Nasal Cannula Nasal Cannula Nasal Cannula Oxygen Flow Rate 2 2 2 09/08/22 12:15 09/08/22 12:40 09/08/22 17:00 Temperature 98.3 F Pulse Rate 93 90 Respiratory Rate 20 16 Blood Pressure 106/68 108/71 Pulse Oximetry 99 99 Oxygen Delivery Nasal Cannula Room Air Oxygen Flow Rate 2 09/08/22 17:00 09/08/22 20:00 09/08/22 20:00 Temperature 98.6 F 98 F Pulse Rate 67 65 65 Respiratory Rate 16 18 18 Blood Pressure 106/68 92/59 L Pulse Oximetry 97 98 98 Oxygen Delivery Room Air Oxygen Flow Rate 09/09/22 00:00 09/09/22 00:00 09/09/22 04:00 Temperature 97.5 F L 97.7 F Pulse Rate 61 61 66 Respiratory Rate 18 18 18 Blood Pressure 99/61 L 95/50 L Pulse Oximetry 98 98 98 Oxygen Delivery Room Air Oxygen Flow Rate 09/09/22 04:51 Temperature Pulse Rate Respiratory Rate Blood Pressure Pulse Oximetry Oxygen Delivery Room Air Oxygen Flow Rate Intake/Output Intake/Output: Intake & Output 09/06/22 09/07/22 09/08/22 09/09/22 23:59 23:59 23:59 23:59 Intake Total 1990 420 Output Total 530 940 Balance 1460 -520 Meds/Results Medications: Active Medications Generic Name Dose Route Start Last Admin Trade Name Freq PRN Reason Stop Dose Admin Hydrocodone Bitart/Acetaminophen 1 tab 09/08/22 12:23 Hydrocodone/Acetaminophen (*Crx) 10-325 Mg Tablet PO Q3H PRN Pain Rated 6 or Greater Hydrocodone Bitart/Acetaminophen 1 tab 09/08/22 12:23 Hydrocodone/Acetaminophen (*Crx) 5-325 Mg Tablet PO Q3H PRN Pain Rated 5 or Less Diltiazem HCl 30 mg 09/08/22 18:00 09/08/22 18:01 Diltiazem Hcl 30 M
--- NOTE | 2022-09-09 06:14 | PM.DS ---
DS: Admitting Diagnosis Discharge Date 09/09/2022 Admitting Diagnosis pelvic pain/ stress urinary incontinence stress / rectocele DS: Discharge Diagnosis Discharge Diagnosis (1) Pelvic pain: Code(s): R10.2 - Pelvic and perineal pain Status: Acute (2) TAWANNA (stress urinary incontinence, female): Code(s): N39.3 - Stress incontinence (female) (male) Status: Acute (3) Rectocele: Code(s): N81.6 - Rectocele Status: Acute DS: Summary Hospital Course Reason for hospitalization: patient was admitted for the above repair. Hospital Course: Patient underwent laparoscopic lysis of adhesions/ sling/rectocele repair. She was nauseated and lot of pain and was thus watched for 24hours. By the a.m. she was up, voiding without difficulty, ambulating, generally without complaints. Time Spent with Patient Time attestation: Total time spent providing and/or coordinating discharge services: Exam Const: General: cooperative, healthy appearing and comfortable Nutritional Appearance: average body habitus Orientation/consciousness: oriented to person, oriented to place and oriented to time Resp: Effort & Inspection: normal respiratory effort Cardio: Rate: regular rate Rhythm: regular rhythm Heart sounds: S1 normal heart sound present and S2 normal heart sound present GI: Inspection: normal to inspection and incision ( Wounds are clean dry and intact) Discharge Plan Discharge Patient Disposition: Home, Self-Care Stand Alone Forms: General Discharge Instructions Follow-up/Referrals: Kevin Suarez MD [Physician] - Discharge Medications: New hydrocodone-acetaminophen 5-325 mg tablet 1 tablet PO Q4H PRN (Reason: pain) Qty: 20 0RF prochlorperazine maleate [Compazine] 10 mg tablet 10 mg PO Q6H PRN (Reason: nausea and vomiting) Qty: 20 0RF No Action omeprazole 20 mg capsule,delayed release(DR/EC) 40 mg PO DAILY famotidine 20 mg tablet 40 mg PO BID diltiazem HCl 30 mg tablet 30 mg PO .COMPLEX Rx Instructions: 30 mg orally BID; docusate sodium 100 mg capsule 100 mg PO BID Qty: 90 0RF
[2022-09-09] MEDS: ENOXAPARIN 40 MG/0.4 ML SYRINGE SUB-Q (06:53)
[2022-09-09] MEDS: PROMETHAZINE HCL 25 MG/ML AMPUL 12.5 MG IV PUSH (06:53)
[2022-09-09] MEDS: HYDROcodone/acetaminophen (*CRX) 5-325 MG TABLET 1 TAB PO (06:54)
[2022-09-09] MEDS: DOCUSATE SODIUM 100 MG CAPSULE PO (06:55)
[2022-09-09] MEDS: dilTIAZem HCL 30 MG TABLET PO (06:55)
--- NOTE | 2022-09-09 07:51 | WPDANESPN ---
Anes - Prog Note Post-Op Date/Time: 09/09/22 07:51 Cardiovascular status: normal Respiratory status: normal Airway patency: baseline Mental status: baseline Post-Op hydration status: normal Vital Signs: Last Vital Signs Temp 97.7 F 09/09/22 04:00 Pulse 66 09/09/22 04:00 Resp 18 09/09/22 04:00 BP 95/50 L 09/09/22 04:00 Pulse Ox 98 09/09/22 04:00 O2 Del Method Room Air 09/09/22 04:51 O2 Flow Rate 2 09/08/22 12:15 Pain Score (VAS): 8 I/O: Intake & Output 09/08/22 09/08/22 09/09/22 15:59 23:59 07:59 Intake Total 750 1240 420 Output Total 200 330 940 Balance 550 910 -520 Post-procedural complaints: none Patient Feedback: Patient satisfied with anesthetic care. Other Findings: N&V but resolved
[2022-09-09 08:30] VITALS: BP 104/64; PULSE 74; RESP 18; TEMP 36.7; O2SAT 98
== END 2022-09-09 10:25 | disposition home or self-care (01) ==
LOC: ANHSURGERY 06:25 → ANHOB2 12:25
PROVIDERS: PCP Family Medicine; Visit Provider Obstetrics & Gynecology
PROC: (CPT 49320; principal; 2022-09-08 07:30)
PROC: 0JQC0ZZ Repair Pelvic Region Subcutaneous Tissue and Fascia, Open Approach (ICD-10-PCS; CPT 45560; 2022-09-08 07:30)
DX: N39.3 Stress incontinence (female) (male) (principal); R10.2 Pelvic and perineal pain; N81.6 Rectocele; K66.0 Peritoneal adhesions (postprocedural) (postinfection); I10 Essential (primary) hypertension; I49.3 Ventricular premature depolarization; K21.9 Gastro-esophageal reflux disease without esophagitis; K58.9 Irritable bowel syndrome, unspecified; Z87.891 Personal history of nicotine dependence; E66.9 Obesity, unspecified; Z68.30 Body mass index [BMI] 30.0-30.9, adult
CPT/HCPCS: 57288; 45560; 49329; 99199; A9270; C1771; J0330; J0690; J1100; J1170; J1200; J1650; J1885; J2175; J2250; J2405; J2550; J2704; J3010; J7030; J7120; J7121

== ENCOUNTER 2022-09-14 09:54 | Emergency (ER) | payer OTHER, SELFPAY ==
[2022-09-14 10:32] VITALS: BP 107/80; PULSE 88; RESP 18; TEMP 36.2; O2SAT 99
--- NOTE | 2022-09-14 11:20 | ED.GENADULT ---
HPI - General Adult General Chief complaint: Upper Respiratory Infection Stated complaint: sore throat Time Seen by Provider: 09/14/22 11:03 Source: patient and RN notes reviewed Mode of arrival: ambulatory Limitations: no limitations History of Present Illness HPI narrative: Patient presents today complaining of sore throat and pain to the roof of her mouth x2 days. She also reports some very mild pain to her tongue. Patient had some bladder surgery 6 days ago and was in the hospital for oxalate 24 hours. At that time she was on IV antibiotics. She currently rates her sore throat 12/11 and has been taking Tylenol without relief. Denies fever, cough, congestion, rhinorrhea. She is wondering if she has thrush. Related Data Home Medications Medication Instructions Recorded Confirmed diltiazem HCl 30 mg tablet 30 mg PO .COMPLEX 08/13/22 09/14/22 famotidine 20 mg tablet 40 mg PO BID 08/13/22 09/14/22 omeprazole 20 mg capsule,delayed 40 mg PO DAILY 08/13/22 09/14/22 release Allergies Allergy/AdvReac Type Severity Reaction Status Date / Time metoclopramide Allergy Mild Other Verified 09/14/22 10:38 Sulfa (Sulfonamide Allergy Unknown Unknown Verified 09/14/22 10:38 Antibiotics) Review of Systems Review of Systems: CONSTITUTIONAL: Denies body aches, fever, chills, or sweats. EYES: Denies visual changes, redness, or discharge. ENT: Denies rhinorrhea, congestion,or otalgia.+ sore throat CARDIOVASCULAR: Denies chest pain, palpitations, or edema. RESPIRATORY: Denies cough or dyspnea. GASTROINTESTINAL: Denies abdominal pain, nausea, vomiting, or diarrhea. GENITOURINARY: Denies dysuria or hematuria. SKIN: Denies rash, itching, or wounds. MUSCULOSKELETAL: Denies back pain, joint pain, or myalgia. NEUROLOGIC: Denies headache, numbness, tingling, or weakness. PSYCH: Denies depression or anxiety. [facility] Past Medical History Medical History Bronchitis GERD (gastroesophageal reflux disease) History of blood transfusion Hypertension IBS (irritable bowel syndrome) Premature ventricular contraction Watermelon stomach Surgical History Surgical History H/O: hysterectomy Hx of appendectomy Hx of cholecystectomy Hx of left knee surgery Hx of spinal surgery Family History Family History Father Acute myocardial infarction Hypertension Unknown Diabetes mellitus Grandparent Carcinoma of colon Sibling Hypertension Social History Social History Smoking packs per day: 0.5 Smoking cigarettes per day: 10.0 Years smoked: 20 Smoking pack-years: 10.00 Smoking status: Former smoker Tobacco type: cigarettes Smoking end date: 05/04/18 Alcohol intake: current Alcohol use details: 2/MONTH Substance use: never Substance use type: does not use Living arrangements: with family Gender identity (if verbalized by the patient): Female Spiritual care concerns: No Comments At time of signature, I have reviewed and agree with nursing past medical, surgical, social and family history unless otherwise noted. Please see nursing chart for further information. There is no relevant family history pertinent to the presenting complaint Exam Narrative: GENERAL: Well-appearing, well-nourished, and in no acute distress. HEAD: Normocephalic, atraumatic. EYES: EOMI. No redness or drainage. Conjunctivae normal. ENT: Mucous membranes pink and moist. Nares clear. No rhinorrhea. TMs normal bilaterally. Throat severely erythematous with mild edema. Erythema extends to the soft palate. Tongue appears normal without white plaques. Uvula midline. NECK: Normal AROM. Supple. No lymphadenopathy. CHEST: No respiratory distress. EXTREMITIES: Normal range of motion. No ed
== END 2022-09-14 11:30 | disposition home or self-care (01) ==
PROVIDERS: Emergency Provider Nurse Practitioner; PCP Family Medicine
DX: J02.9 Acute pharyngitis, unspecified (principal); Z87.891 Personal history of nicotine dependence; K21.9 Gastro-esophageal reflux disease without esophagitis; I10 Essential (primary) hypertension
CPT/HCPCS: 87081; 87880; 99213; G0463

== ENCOUNTER 2022-12-26 17:52 | Emergency (ER) | payer OTHER, SELFPAY ==
[2022-12-26] VITALS (8 sets, daily range): BP systolic 126–145; BP diastolic 85–103; PULSE 65–84; RESP 17–18; TEMP 36.3; O2SAT 95–100
--- NOTE | ~2022-12-26 | CT_ITS ---
EXAMINATION: CT abdomen pelvis w con DATE: 12/26/2022 20:43 INDICATION: Abdominal pain TECHNIQUE: Computed tomography (CT) of the abdomen and pelvis was performed with 100 mL Omnipaque-350 intravenous contrast. Automated exposure control and iterative reconstruction technique were employe d. The dose-length product was 748.17 mGy-cm. COMPARISON: None FINDINGS: Lung bases are clear. Heart size is normal. No pericardial or pleural effusion. Cholecystectomy clips the gallbladder fossa. Liver, spleen, pancreas, bilateral adrenal glands and kidneys are normal. Sta tus post appendectomy with a few surgical clips at the tip the cecum. No bowel obstruction. Bladder i s normal. The uterus is not identified and has likely been surgically resected. No free intraperitone al gas or fluid. No pathologically enlarged abdominal or pelvic lymphadenopathy. Severe spondylosis a t the lumbosacral junction. IMPRESSION: 1. No acute intra-abdominal/pelvic process. Reviewed, dictated and finalized at location A.
--- NOTE | 2022-12-26 19:51 | ED.GENADULT ---
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 Patient reports she did have a bladder sling on September [address] Shantel Rob. Patient reports over the last few days she has had worsening pain in the lower abdomen when bending. Patient denies any associated nausea or vomiting. Patient states that she has no pain with urination or difficulty urinating. Patient denies any hematuria. Patient did contact [employer] and they recommended she present to the ED for further work-up. Related Data Home Medications Medication Instructions Recorded Confirmed diltiazem HCl 30 mg tablet 30 mg PO .COMPLEX 08/13/22 09/14/22 famotidine 20 mg tablet 40 mg PO BID 08/13/22 09/14/22 omeprazole 20 mg capsule,delayed 40 mg PO DAILY 08/13/22 09/14/22 release Allergies Allergy/AdvReac Type Severity Reaction Status Date / Time metoclopramide Allergy Mild Other Verified 09/14/22 10:38 Sulfa (Sulfonamide Allergy Unknown Unknown Verified 09/14/22 10:38 Antibiotics) Review of Systems Review of Systems: All systems reviewed & are unremarkable except as noted in HPI and below PMFSH Past Medical History Medical History Bronchitis GERD (gastroesophageal reflux disease) History of blood transfusion Hypertension IBS (irritable bowel syndrome) Premature ventricular contraction Watermelon stomach Surgical History Surgical History H/O: hysterectomy Hx of appendectomy Hx of cholecystectomy Hx of left knee surgery Hx of spinal surgery Family History Family History Father Acute myocardial infarction Hypertension Unknown Diabetes mellitus Grandparent Carcinoma of colon Sibling Hypertension Social History Social History Smoking packs per day: 0.5 Smoking cigarettes per day: 10.0 Years smoked: 20 Smoking pack-years: 10.00 Smoking status: Former smoker Tobacco type: cigarettes Smoking end date: 05/04/18 Alcohol intake: current Alcohol use details: 2/MONTH Substance use: never Substance use type: does not use Living arrangements: with family Gender identity (if verbalized by the patient): Female Spiritual care concerns: No Exam Narrative: APPEARANCE: Well appearing, no pain, no distress, well-nourished. HEAD: normocephalic, atraumatic. EYES: PERRLA/EOMI, conjunctivae clear. NOSE: Normal no drainage EARS:TMS clear with good light reflex. THROAT: Pharynx clear, no exudate. NECK: Supple. No adenopathy, no masses. RESPIRATORY: Airway patent, respirations nonlabored. Clear to auscultation bilaterally, no rales, rhonchi, wheezing. CARDIOVASCULAR: Regular rate and rhythm without murmurs rubs or gallops. ABDOMINAL: Left lower abdominal tenderness to palpation MUSCULOSKELETAL: Moves all extremities. Strength/ROM intact, No edema, No calf tenderness. NEURO: Alert. Cranial nerves II through XII intact. Grossly intact SKIN: Warm, dry. Normal Color Course Course Emergency Course: 42-year-old male present emergency department for evaluation of left lower quadrant pain. Patient was ordered IV fluids and IV medications for pain control. Patient is afebrile with no leukocytosis and stable hemoglobin. Patient's chemistry shows no acute abnormalities patient's lactic acid is not elevated patient has normal AST ALT T. bili and alk phos. UA did have some trace ketones leukoesterase and some white blood cells. Patient denies any pain with urination urine cultures pending. CT scan showed no acute abdominal pelvic process. Patient has prior history of hysterectomy
[2022-12-26 20:15] LABS: Basophils Absolute Auto 0.1 K/mm3 (0.0-0.1); Basophils Percent Auto 0.6 % (0.2-1.2); Eosinophils Absolute Auto 0.1 K/mm3 (0-0.3); Eosinophils Percent Auto 1.3 % (0-4.4); Hematocrit 40.1 % (37.0-47.0); Hemoglobin 13.2 g/dL (12.0-15.0); Immature Granulocyte Absolute 0.02 K/mm3 (0.00-0.031); Immature Granulocyte Percent A 0.2 % (0-0.5); Lymphocytes Absolute Auto 2.86 K/mm3 (0.9-3.2); Lymphocytes Percent Auto 32.5 % (18.3-44.2); Mean Corpuscular HGB Conc 32.9 g/dl (32-36); Mean Corpuscular Hemoglobin 28.9 pg (26-34); Mean Corpuscular Volume 87.9 fl (80-100); Mean Platelet Volume 11.6 fl (7.4-10.4); Monocytes Absolute Auto 0.6 K/mm3 (0.1-0.6); Monocytes Percent Auto 6.5 % (2.6-8.5); Neutrophils Absolute Auto 5.2 K/mm3 (1.3-6.7); Neutrophils Percent Auto 58.9 % (45.5-73.1); Platelet Count Result 251 k/mm3 (150-375); Red Blood Count 4.56 M/mm3 (4.2-5.4); Red Cell Distribution Width 13.8 % (11.5-14.5); White Blood Count 8.8 K/mm3 (4.5-10.0)
[2022-12-26] MEDS: LACTATED RINGERS 1,000 ML 999 ML IV CONT (20:15)
[2022-12-26] MEDS: HYDROmorphone HCL INJ (*CRX) 1 MG/ML SYR 0.5 MG IV PUSH (20:16)
[2022-12-26 20:17] LABS: Bacteria Urine None Seen /hpf; Non Pathogenic Casts 0-2; RBC Urine 0-2 /hpf (0-2)
[2022-12-26 20:29] LABS: Alanine Aminotransferase 19 U/L (6-35); Albumin Level 4.8 g/dL (3.5-5.1); Alkaline Phosphatase 95 U/L (38-126); Anion Gap 11 mmol/L (8-16); Aspartate Amino Transferase 28 U/L (14-36); Bilirubin,Total 0.8 mg/dL (0.2-1.3); Blood Urea Nitrogen 14 mg/dL (7-17); Calcium 9.4 mg/dL (8.4-10.2); Carbon Dioxide 24 mmol/L (22-30); Chloride 102 mmol/L (98-107); Estimated CRCL calculation 84 ml/min; Estimated Glomerular Filt Rate > 60; Glucose 96 mg/dL (65-110); Potassium 3.5 mmol/L (3.4-5.0); Sodium 137 mmol/L (137-145)
[2022-12-26 20:32] LABS: Lactic Acid Reflex 0.8 mmol/L (0.7-2.0)
[2022-12-26 20:59] LABS: Appearance Urine Clear (Clear); Bilirubin Urine Negative (Negative); Blood Urine Negative (Negative); Color Urine Yellow (Yellow); Glucose Urine UA Negative (Negative); Ketones Urine Trace mg/dL (Negative); Leukocyte Esterase Ur 1+ LEU/UL (Negative); Nitrate Urine Negative (Negative); Protein Urine Negative (Negative); Specific Grav Ur 1.011 (1.001-1.035); Squamous Epithelial Cell Urine Occasional /hpf (Few); Urobilinogen Urine 0.2 mg/dL (<2.0); pH Urine 6.5 (5.0-9.0)
[2022-12-26 21:02] LABS: Add Urine Microscopic? YES
[2022-12-26] MEDS: ONDANSETRON INJ 4 MG/2 ML VIAL IV PUSH (22:10)
== END 2022-12-26 22:23 | disposition home or self-care (01) ==
PROVIDERS: Emergency Provider Emergency Medicine; PCP Family Medicine
DX: R10.32 Left lower quadrant pain (principal); I10 Essential (primary) hypertension; K21.9 Gastro-esophageal reflux disease without esophagitis; K58.9 Irritable bowel syndrome, unspecified; K31.819 Angiodysplasia of stomach and duodenum without bleeding; Z87.891 Personal history of nicotine dependence; Z90.710 Acquired absence of both cervix and uterus; Z90.49 Acquired absence of other specified parts of digestive tract
CPT/HCPCS: 36415; 74177; 80053; 81001; 83605; 85025; 87086; 96361; 96374; 96375; 99284; J1170; J2405; J7120; Q9967

== ENCOUNTER 2023-01-06 16:10 | Observation (INO) | payer OTHER, SELFPAY ==
--- NOTE | ~2023-01-06 | MR_ITS ---
EXAMINATION: MR lumbar spine wo con DATE: 01/08/2023 13:28 INDICATION: Cauda equina lesion TECHNIQUE: Magnetic resonance imaging (MRI) of the lumbar spine was performed without intravenous con trast. Sequences included sagittal T2-weighted FSE, sagittal T2-weighted FS FSE, sagittal T1-weighted FSE, and axial T2-weighted FSE. COMPARISON: None FINDINGS: 3-4 mm retrolisthesis L5 on S1. Alignment is otherwise normal. Vertebral body heights are normal. Sev ere disc height loss with fibrofatty and fibrovascular degenerative endplate changes at L5-S1. Remain ing discs demonstrate normal height and signal. Otherwise normal bone marrow signal. The conus medull toñito terminates at L1-L2. There is normal signal in the caudal spinal cord. There is normal thickness and distribution of the nerve roots in the cauda equina. Paravertebral soft tissues are unremarkable . The following disc levels are specifically discussed: T12-L1: The disc does not extend beyond the endplate margin. There is mild bilateral facet joint oste oarthritis. There is no neural foraminal stenosis. There is no central canal stenosis. L1-L2: Minimal disc bulge. There is mild bilateral facet joint osteoarthritis. There is no neural for aminal stenosis. There is no central canal stenosis. L2-L3: Disc is mildly bulging. There is mild left and mild to moderate right facet joint osteoarthrit is. There is no neural foraminal stenosis. There is minimal central canal stenosis. L3-L4: Disc is mildly bulging. There is mild right and mild to moderate left facet joint osteoarthrit is. There is no neural foraminal stenosis. There is mild central canal stenosis. L4-L5: Disc is mildly bulging with annular fissure and superimposed small left foraminal zone disc pr otrusion. There is mild to moderate bilateral facet joint osteoarthritis. There is mild left and mini mal right neural foraminal stenosis. There is mild central canal stenosis. L5-S1: Annular fissure and broad-based disc extrusion extending from foraminal zone to foraminal zone with disc material extending up to 3 mm caudal to the level of the superior endplate of S1. There is mild right and mild to moderate left facet joint osteoarthritis. There is moderate bilateral neural foraminal stenosis. There is mild central canal stenosis along with mild narrowing of the left and ri ght lateral recesses. IMPRESSION: 1. Severe spondylosis at L5-S1 with minimal to mild more cephalad lumbar spondylosis. 2. Normal appearance to the conus medullaris and cauda equina. Reviewed, dictated and finalized at location A. IMPRESSION: 1. Severe spondylosis at L5-S1 with minimal to mild more cephalad lumbar spondy losis. 2. Normal appearance to the conus medullaris and cauda equina.
--- NOTE | ~2023-01-06 | CT_ITS ---
EXAMINATION: CT abdomen pelvis w con DATE: 01/07/2023 09:30 INDICATION: Pelvic pain. TECHNIQUE: Computed tomography (CT) of the abdomen and pelvis was performed with 100 mL Omnipaque 350 intravenous contrast. Automated exposure control and iterative reconstruction technique were employe d. The dose-length product was 652.40 mGy-cm. COMPARISON: CT abdomen and pelvis 12/26/2022 FINDINGS: The visualized portions of the lung bases demonstrate mild atelectasis. No pleural effusion . The heart size is normal. No pericardial effusion. The liver is normal. There are changes of cholec ystectomy. The spleen, pancreas, adrenal glands, and kidneys are normal. There are no dilated loops o f bowel. There are changes of appendectomy. There are no pathologically enlarged lymph nodes. There i s no free intraperitoneal fluid. There is severe lower lumbar spondylosis. IMPRESSION: 1. No etiology for the patient's symptoms. Reviewed, dictated and finalized at location A.
--- NOTE | 2023-01-06 16:05 | PM.IMHP ---
H&P: HPI History of Present Illness Date/Time: 01/06/23 16:05 Chief Complaint: Intractable abdominal pain and pelvic pain Narrative: Is a 42-year-old female underwent a tVT a few months ago and has sudden onset about 3 weeks ago of severe left lower quadrant pain. She has had ultrasound workup which was negative. She had a CT scan here which was negative. The pain continues in the area of the left portion the tension-free vaginal tape. Pain medicine has been unremarkable with normal white count etc.. She was happy from the standpoint of the stress urinary incontinence being cured. She is admitted for pain treatment and consultation with obgyn hospitalist physician urologist. [facility] Past Medical History Medical History Bronchitis GERD (gastroesophageal reflux disease) History of blood transfusion Hypertension IBS (irritable bowel syndrome) Premature ventricular contraction Watermelon stomach Surgical History Surgical History H/O: hysterectomy Hx of appendectomy Hx of cholecystectomy Hx of left knee surgery Hx of spinal surgery Family History Family History Father Acute myocardial infarction Hypertension Unknown Diabetes mellitus Grandparent Carcinoma of colon Sibling Hypertension Social History Social History Smoking packs per day: 0.5 Smoking cigarettes per day: 10.0 Years smoked: 20 Smoking pack-years: 10.00 Smoking status: Former smoker Tobacco type: cigarettes Smoking end date: 05/04/18 Alcohol intake: current Alcohol use details: 2/MONTH Substance use: never Substance use type: does not use Living arrangements: with family Gender identity (if verbalized by the patient): Female Spiritual care concerns: No Meds Home Medications and Allergies Home Medications Medication Instructions Recorded Confirmed Type diltiazem HCl 30 mg tablet 30 mg PO .COMPLEX 08/13/22 09/14/22 History famotidine 20 mg tablet 40 mg PO BID 08/13/22 09/14/22 History omeprazole 20 mg capsule,delayed 40 mg PO DAILY 08/13/22 09/14/22 History release nystatin 100,000 unit/mL oral 5 ml PO QID 7 days #140 mL 09/14/22 Rx suspension ondansetron 4 mg disintegrating 4 mg PO Q8H PRN nausea and 12/26/22 Rx tablet vomiting #14 tabs Allergies Allergy/AdvReac Type Severity Reaction Status Date / Time metoclopramide Allergy Mild Other Verified 09/14/22 10:38 Sulfa (Sulfonamide Allergy Unknown Unknown Verified 09/14/22 10:38 Antibiotics) Exam Const: General: cooperative, healthy appearing and in distress Nutritional Appearance: overweight Orientation/consciousness: oriented to person, oriented to place and oriented to time HENMT: Head: normal to inspection Resp: Effort & Inspection: normal respiratory effort Cardio: Rate: regular rate Rhythm: regular rhythm Heart sounds: S1 normal heart sound present and S2 normal heart sound present GI: Inspection: normal to inspection Auscultation: normal bowel sounds : General: Yes other (Suprapubic tenderness to the left) Speculum Exam - Vagina: normal appearance of the vagina and tenderness on the left Bimanual exam- vagina & uterus: uterus absent Bimanual Exam- Adnexa, other: normal adnexae Assessment and Plan Assessment and plan (1) Pelvic pain: Code(s): R10.2 - Pelvic and perineal pain Status: Acute Plan Patient is admitted for observation with pain treatment and consultation with obgyn hospitalist physician urologist
[2023-01-06 16:28] VITALS: BP 132/87; PULSE 66; RESP 18; TEMP 35.9; O2SAT 100
--- NOTE | 2023-01-06 16:34 | ADMGEN ---
This patient, Brenda Weiss, was admitted to 3 [facility] Surg Room 319-01. Patient/family oriented to hospital policies and general routines including ID bracelet, bed and alarms, visiting hours, pain management, procedures, bathroom and other care routines, personal items, smoking policy, room service/diet, and visiting hours. Information on how to activate the Rapid Response Team has been discussed. Patient/Family are encouraged to report perceived risks to care and to ask questions if they do not understand what they are told or what they should do.
[2023-01-06 17:09] LABS: Basophils Percent Auto 0.6 % (0.2-1.2); Eosinophils Absolute Auto 0.1 K/mm3 (0-0.3); Eosinophils Percent Auto 1.5 % (0-4.4); Hematocrit 37.3 % (37.0-47.0); Hemoglobin 12.5 g/dL (12.0-15.0); Immature Granulocyte Absolute 0.01 K/mm3 (0.00-0.031); Immature Granulocyte Percent A 0.2 % (0-0.5); Lymphocytes Absolute Auto 2.03 K/mm3 (0.9-3.2); Lymphocytes Percent Auto 31.3 % (18.3-44.2); Mean Corpuscular HGB Conc 33.5 g/dl (32-36); Mean Corpuscular Hemoglobin 28.9 pg (26-34); Mean Corpuscular Volume 86.3 fl (80-100); Mean Platelet Volume 11.7 fl (7.4-10.4); Monocytes Absolute Auto 0.5 K/mm3 (0.1-0.6); Monocytes Percent Auto 7.1 % (2.6-8.5); Neutrophils Absolute Auto 3.9 K/mm3 (1.3-6.7); Neutrophils Percent Auto 59.3 % (45.5-73.1); Platelet Count Result 249 k/mm3 (150-375); Red Blood Count 4.32 M/mm3 (4.2-5.4); Red Cell Distribution Width 13.9 % (11.5-14.5); White Blood Count 6.5 K/mm3 (4.5-10.0)
[2023-01-06] MEDS: HYDROcodone/acetaminophen (*CRX) 10-325 MG TABLET 1 TAB PO ×2 (17:15→23:06)
[2023-01-06] MEDS: ONDANSETRON INJ 4 MG/2 ML VIAL IV PUSH ×2 (17:15→23:06)
[2023-01-06] MEDS: dilTIAZem HCL 30 MG TABLET PO (19:05)
[2023-01-06 19:31] LABS: NT Pro B Type Natriuretic Pept 371 pg/mL (19.9-100)
[2023-01-06] MEDS: FAMOTIDINE 20 MG TABLET 40 MG PO (21:12)
[2023-01-06] MEDS: DOCUSATE SODIUM 100 MG CAPSULE PO (21:12)
[2023-01-06 22:00] VITALS: BP 143/83; PULSE 56; RESP 14; TEMP 36; O2SAT 99
[2023-01-06 23:05] VITALS: BMI 29.1
[2023-01-07] MEDS: ONDANSETRON INJ 4 MG/2 ML VIAL IV PUSH ×3 (04:39→22:15)
[2023-01-07 05:55] VITALS: BP 129/89; PULSE 74; RESP 16; TEMP 35.7; O2SAT 100
[2023-01-07 06:00] VITALS: BP 129/89; PULSE 74; RESP 16; TEMP 35.7; O2SAT 100
[2023-01-07] MEDS: PROMETHAZINE HCL 25 MG/ML AMPUL 12.5 MG IV PUSH (06:53)
[2023-01-07 08:52] LABS: Anion Gap 6 mmol/L (8-16); Blood Urea Nitrogen 9 mg/dL (7-17); Calcium 8.9 mg/dL (8.4-10.2); Carbon Dioxide 30 mmol/L (22-30); Chloride 105 mmol/L (98-107); Estimated CRCL calculation 81 ml/min; Estimated Glomerular Filt Rate > 60; Glucose 119 mg/dL (65-110); Potassium 3.7 mmol/L (3.4-5.0); Sodium 141 mmol/L (137-145)
[2023-01-07] MEDS: DOCUSATE SODIUM 100 MG CAPSULE PO ×2 (09:19→20:56)
[2023-01-07] MEDS: PANTOPRAZOLE 40 MG TABLET PO ×2 (09:19→20:56)
[2023-01-07] MEDS: dilTIAZem HCL 30 MG TABLET PO ×2 (09:19→16:07)
[2023-01-07] MEDS: IBUPROFEN 600 MG TABLET PO ×3 (10:36→22:14)
--- NOTE | 2023-01-07 12:24 | WPDURCON ---
Assessment and Plan Assessment and plan (1) Pelvic pain: Code(s): R10.2 - Pelvic and perineal pain Status: Acute Assessment and Plan: No related to any Urologic origin. CT of pelvis is normal. CT of abdomen is normal, upper tracts are normal. Negative urine culture, creatinine is normal and bladder scan is normal. No further evaluation. (2) Radiculopathy: Code(s): M54.10 - Radiculopathy, site unspecified Status: Acute Assessment and Plan: I recommend consulting Neurosurgery for further evaluation, as this doesn't appear to be of Urologic origin. History of L5-S1 Spinal fusion and spinal stenosis. Urology Consult Note HPI Date Seen: 01/07/23 Time Seen: 10:00 Requesting Physician: Kevin Rob MD Primary Care Provider: Enrique Gordon, Consult Narrative Reason for consult: Pelvic Pain Narrative: Brenda Weiss is a 42 year old female who was a direct admit for intractable pelvic pain in the left groin. We were consulted since the patient had a recent procedures: Laparoscopic extensive lysis of adhesions with cystoscopy and tension free vaginal tape placement on 09/[address] Shantel Rob. It was thought that maybe the pain originated from the procedure or that there is involvement of the Urologic anatomy causing pain. Her pelvic CT scan today is normal. CT scan of abdomen and pelvis on 12/26/22 in the ER was normal as well. Urine culture from 12/26/22 was negative, creatinine is 0.80, WBC is 6.5 and the patient denies dysuria, frequency, urgency, stress or urge incontinence, difficulty urinating, flank pain, kidney stones, bladder pain, chronic UTI's, hesitancy or straining to urinate. Her PVR today via bladder scan at the bedside was 14cc. She states she has a history of an L5-S1 Fusion 6-7 years ago at [facility]. She states the pain started suddenly two weeks ago when she was bent over at work and she felt a sudden sharp pain the left groin. 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 She states the pain is present only with movement, but not with rest. She also notes left left weakness when walking and some numbness in her leg intermittently and numbness in her toes as well intermittently. The pain is causing her to vomiting and be nauseated. She rates the pain as a 10/10 at times. Review of Systems Cardiovascular: Cardiovascular: Denies chest pain Respiratory: Respiratory: Reports no additional respiratory complaints Gastrointestinal: Gastrointestinal: Denies abdominal pain, Reports nausea and Reports vomiting Genitourinary: Genitourinary: Denies hematuria, Denies urinary frequency, Denies post void dribbling, Denies nocturia, Denies dysuria, Reports pelvic pain, Denies flank pain, Denies urinary hesitancy and Denies urinary urgency Musculoskeletal: Musculoskeletal: Reports muscle weakness, Reports numbness, Reports radiating pain into limb and Reports tingling Neurologic: Reports numbness, Reports radicular pain, Reports tingling and Reports weakness PMFSH Past Medical History Medical History Bronchitis GERD (gastroesophageal reflux disease) History of blood transfusion Hypertension IBS (irritable bowel syndrome) Premature ventricular contraction Watermelon stomach Surgical History Surgical History H/O: hysterectomy Hx of appendectomy Hx of cholecystectomy Hx of left knee surgery Hx of spinal surgery Family History Family History Father Acute myocardial infarction Hypertension Unknown No problems noted. Grandparent Carcinoma of colon Diabetes mellitus Sibling Hypertension Social History Social History Smoking packs per day: 1 Smoking cigarettes per day: 20.0 Ye
--- NOTE | 2023-01-07 12:31 | PM.GYNPNOP ---
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 may consider gabapentin) Time Spent With Patient Time: Total time spent is greater than 50% in coordination of care (as documented) at patient's floor/unit and/or counseling patient: Time with patient: less than 15 minutes DAM TENDER ASSISTANT- PN:Subj Post-Op Subjective Date/time seen: 01/07/23 12:31 Subjective: patient is tolerating oral intake, patient reports nausea and pain not well controlled Exam Const: General: cooperative and healthy appearing Orientation/consciousness: oriented to person, oriented to place and oriented to time Resp: Effort & Inspection: normal respiratory effort Cardio: Rate: regular rate Rhythm: regular rhythm Heart sounds: S1 normal heart sound present and S2 normal heart sound present GI: Inspection: normal to inspection : External Female Exam: normal external appearance and other (very tender llq) DAM TENDER ASSISTANT - PN: Obj Data Vital Signs Vital Signs: Vital Signs - 24 hr 01/06/23 16:28 01/06/23 15:50 01/06/23 22:00 Temperature 96.7 F L 96.8 F L Pulse Rate 66 56 L Respiratory Rate 18 14 Blood Pressure 132/87 143/83 H Pulse Oximetry 100 99 Oxygen Delivery Room Air 01/07/23 05:55 01/07/23 06:00 Temperature 96.2 F L 96.2 F L Pulse Rate 74 74 Respiratory Rate 16 16 Blood Pressure 129/89 129/89 Pulse Oximetry 100 100 Oxygen Delivery Intake/Output Intake/Output: Intake & Output 01/04/23 01/05/23 01/06/23 01/07/23 23:59 23:59 23:59 23:59 Intake Total 222 1082 Output Total 75 Balance 222 1007 Meds/Results Medications: Active Medications Generic Name Dose Route Start Last Admin Trade Name Freq PRN Reason Stop Dose Admin Hydrocodone Bitart/Acetaminophen 1 tab 01/06/23 16:10 Hydrocodone/Acetaminophen (*Crx) 5-325 Mg Tablet PO Q3H PRN Pain Rated 5 or Less Hydrocodone Bitart/Acetaminophen 1 tab 01/06/23 16:10 01/06/23 23:06 Hydrocodone/Acetaminophen (*Crx) 10-325 Mg Tablet PO 1 tab Q3H PRN Administration Pain Rated 6 or Greater Diltiazem HCl 30 mg 01/06/23 18:38 01/07/23 09:19 Diltiazem Hcl 30 Mg Tablet PO 30 mg BID NANCY Administration Docusate Sodium 100 mg 01/06/23 21:00 01/07/23 09:19 Docusate Sodium 100 Mg Capsule PO 100 mg Q12HR NANCY Administration Famotidine 40 mg 01/06/23 21:00 01/06/23 21:12 Famotidine 20 Mg Tablet PO 40 mg HS NANCY Administration Dextrose/Lactated Ringer's 1,000 mls @ 125 mls/hr 01/06/23 16:10 01/07/23 01:03 Dextrose 5%/Lactated Ringers IV CONT Not Given .Q8H NANCY Ibuprofen 600 mg 01/06/23 16:10 01/07/23 10:36 Ibuprofen 600 Mg Tablet PO 600 mg Q6H PRN Administration Cramping Ketorolac Tromethamine 30 mg 01/06/23 16:10 Ketorolac 30 Mg/Ml Vial (*Bk) IV PUSH 01/11/23 16:09 Q6H PRN Pain Rated 4-6 Naloxone HCl 0.1 mg 01/06/23 16:10 Naloxone Hcl 0.4 Mg/Ml Vial IV PUSH Q2M PRN Respiratory rate less than 10 Ondansetron HCl 4 mg 01/06/23 16:10 01/07/23 10:37 Ondansetron Inj 4 Mg/2 Ml Vial IV PUSH 4 mg Q6H PRN Administration Nausea And Vomiting Pantoprazole Sodium 40 mg 01/07/23 09:00 01/07/23 09:19 Pantoprazole 40 Mg Tablet PO 40 mg Q12HR NANCY Administration Simethicone 80 mg 01/06/23 16:10 Simethicone 80 Mg Tab.Chew PO Q2H PRN Gas Radiology Results: ITS Impressions Abdomen/Pelvis CT 01/07/23 09:36 IMPRESSION: 1. No etiology for the patient's symptoms. Labs 01/06/23 17:00 01/07/23 08:28 Labs: Laboratory Results - last 24 hr 01/06/23 01/06/23 01/07/23 16:56 17:00 08:28 WBC 6.5 RBC 4.32 Hgb 12.5 Hct 37.3 MCV 86.3 MCH 28.9 MCHC 33.5 RDW 13.9 Plt Count 249 MPV 11.7 H Immature Gran
[2023-01-07 13:56] VITALS: BP 111/77; PULSE 60; RESP 18; TEMP 36; O2SAT 100
--- NOTE | 2023-01-07 15:22 | WPDNEURCNPN ---
Assessment and Plan Assessment and plan (1) Bladder dysfunction: Code(s): N31.9 - Neuromuscular dysfunction of bladder, unspecified Status: Acute Plan Subacute lower abdominal pain with history of bladder dysfunction will obtain the MRI of the lumbosacral spine to rule out the possibility of cauda equina lesion before any further suggestions are made. Consult date: 01/07/23 HPI: Brenda Weiss is a 42 year old female Admitted to the hospital through the emergency room for the complaints of left-sided groin pain, in addition to the history of placement of bladder sling by Dr. Norton , over the last several days increasing pain in her lower abdomen without associated nausea or vomiting or complaint of pain on urination also without hematuria, patient has been taking diltiazem 30 mg daily in addition to famotidine and omeprazole, and she is allergic to metoclopramide and sulfa ,her past history is consistent with history of irritable bowel syndrome, premature ventricular contractions and watermelon stomach. she is a former smoker but years smoked 20, currently alcohol intake seldom, initial exam in the emergency room was documented normal particular her vital signs were normal except blood pressure 145/98 CBC was normal BMP was normal routine labs were normal leukocyte Estrace was only 1+ and was negative for protein and glucose, CT of the abdomen and pelvis was negative Review of Systems Review of Systems: All systems reviewed & are unremarkable except as noted in HPI and below PMFSH Past Medical History Medical History Bronchitis GERD (gastroesophageal reflux disease) History of blood transfusion Hypertension IBS (irritable bowel syndrome) Premature ventricular contraction Watermelon stomach Surgical History Surgical History H/O: hysterectomy Hx of appendectomy Hx of cholecystectomy Hx of left knee surgery Hx of spinal surgery Family History Family History Father Acute myocardial infarction Hypertension Unknown No problems noted. Grandparent Carcinoma of colon Diabetes mellitus Sibling Hypertension Social History Social History Smoking packs per day: 1 Smoking cigarettes per day: 20.0 Years smoked: 15 Smoking pack-years: 15.00 Smoking status: Former smoker Tobacco type: cigarettes Smoking end date: 05/04/18 Alcohol intake: current Drinks per week: 2 Alcohol use details: 2/MONTH Substance use: never Substance use type: does not use Lack of Transportation: No Lack of Food: Never True Current Housing: I Have Housing Concerned About Future Housing: No Difficulty Paying Gas/Electric Bills: No Difficulty Paying for Meds: No Currently Unemployed: No Education: Associate Degree Difficulty w/ Childcare or Family Care: No Living arrangements: with family Gender identity (if verbalized by the patient): Female Spiritual care concerns: No Meds Home Medications and Allergies Home Medications Medication Instructions Recorded Confirmed Type diltiazem HCl 30 mg tablet 30 mg PO BID 08/13/22 01/06/23 History famotidine 20 mg tablet 40 mg PO HS 08/13/22 01/06/23 History omeprazole 20 mg capsule,delayed 40 mg PO DAILY 08/13/22 01/06/23 History release ondansetron 4 mg disintegrating 4 mg PO Q8H PRN nausea and 12/26/22 01/06/23 Rx tablet vomiting #14 tabs hydrocodone 5 mg-acetaminophen 325 1 - 2 tablet PO Q4-6H 01/06/23 01/06/23 History mg tablet Allergies Allergy/AdvReac Type Severity Reaction Status Date / Time metoclopramide Allergy Mild Other Verified 09/14/22 10:38 Sulfa (Sulfonamide Allergy Unknown Unknown Verified 09/14/22 10:38 Antibiotics) Vital Signs Vital Signs - 24 hr 01/06/23
[2023-01-07] MEDS: FAMOTIDINE 20 MG TABLET 40 MG PO (20:54)
[2023-01-07 21:55] VITALS: BP 112/76; PULSE 60; RESP 16; TEMP 36.2; O2SAT 100
--- NOTE | 2023-01-07 23:04 | PCNEURO ---
patient stated that they would rather take Ibuprofen for pain, than taking the [place] 10mg because it it makes her too nauseous when taking
[2023-01-08] MEDS: IBUPROFEN 600 MG TABLET PO ×2 (05:05→13:37)
[2023-01-08] MEDS: ONDANSETRON INJ 4 MG/2 ML VIAL IV PUSH (05:06)
[2023-01-08 06:00] VITALS: BP 118/77; PULSE 63; RESP 16; TEMP 35.8; O2SAT 99
--- NOTE | 2023-01-08 07:17 | PM.GYNPNOP ---
ADMINISTRATIVE PROGRAM SPECIALIST - A/P Assessment and plan (1) Radiculopathy: Code(s): M54.10 - Radiculopathy, site unspecified Status: Acute (2) Pelvic pain: Code(s): R10.2 - Pelvic and perineal pain Status: Acute Plan await mri and neuro reccs Time Spent With Patient Time: Total time spent is greater than 50% in coordination of care (as documented) at patient's floor/unit and/or counseling patient: Time with patient: less than 15 minutes ADMINISTRATIVE PROGRAM SPECIALIST- PN:Subj Post-Op Subjective Date/time seen: 01/08/23 07:17 Interval history: pain continues. mri ordered Exam Const: General: cooperative, healthy appearing and comfortable Orientation/consciousness: oriented to person, oriented to place and oriented to time HENMT: Head: normal to inspection Resp: Effort & Inspection: normal respiratory effort GI: Inspection: normal to inspection (pain in left suprapubic area remains) ADMINISTRATIVE PROGRAM SPECIALIST - PN: Obj Data Vital Signs Vital Signs: Vital Signs - 24 hr 01/07/23 13:56 01/07/23 21:55 01/08/23 06:00 Temperature 96.8 F L 97.1 F L 96.5 F L Pulse Rate 60 60 63 Respiratory Rate 18 16 16 Blood Pressure 111/77 112/76 118/77 Pulse Oximetry 100 100 99 Intake/Output Intake/Output: Intake & Output 01/05/23 01/06/23 01/07/23 01/08/23 23:59 23:59 23:59 23:59 Intake Total 222 1562 200 Output Total 75 Balance 222 1487 200 Meds/Results Medications: Active Medications Generic Name Dose Route Start Last Admin Trade Name Freq PRN Reason Stop Dose Admin Hydrocodone Bitart/Acetaminophen 1 tab 01/06/23 16:10 Hydrocodone/Acetaminophen (*Crx) 5-325 Mg Tablet PO Q3H PRN Pain Rated 5 or Less Hydrocodone Bitart/Acetaminophen 1 tab 01/06/23 16:10 01/06/23 23:06 Hydrocodone/Acetaminophen (*Crx) 10-325 Mg Tablet PO 1 tab Q3H PRN Administration Pain Rated 6 or Greater Diltiazem HCl 30 mg 01/06/23 18:38 01/07/23 16:07 Diltiazem Hcl 30 Mg Tablet PO 30 mg BID NANCY Administration Docusate Sodium 100 mg 01/06/23 21:00 01/07/23 20:56 Docusate Sodium 100 Mg Capsule PO 100 mg Q12HR NANCY Administration Famotidine 40 mg 01/06/23 21:00 01/07/23 20:54 Famotidine 20 Mg Tablet PO 40 mg HS NANCY Administration Ibuprofen 600 mg 01/06/23 16:10 01/08/23 05:05 Ibuprofen 600 Mg Tablet PO 600 mg Q6H PRN Administration Cramping Ketorolac Tromethamine 30 mg 01/06/23 16:10 Ketorolac 30 Mg/Ml Vial (*Bk) IV PUSH 01/11/23 16:09 Q6H PRN Pain Rated 4-6 Naloxone HCl 0.1 mg 01/06/23 16:10 Naloxone Hcl 0.4 Mg/Ml Vial IV PUSH Q2M PRN Respiratory rate less than 10 Ondansetron HCl 4 mg 01/06/23 16:10 01/08/23 05:06 Ondansetron Inj 4 Mg/2 Ml Vial IV PUSH 4 mg Q6H PRN Administration Nausea And Vomiting Pantoprazole Sodium 40 mg 01/07/23 09:00 01/07/23 20:56 Pantoprazole 40 Mg Tablet PO 40 mg Q12HR NANCY Administration Simethicone 80 mg 01/06/23 16:10 Simethicone 80 Mg Tab.Chew PO Q2H PRN Gas Radiology Results: ITS Impressions Abdomen/Pelvis CT 01/07/23 09:36 IMPRESSION: 1. No etiology for the patient's symptoms. Labs 01/06/23 17:00 01/07/23 08:28 Labs: Laboratory Results - last 24 hr 01/07/23 08:28 Sodium 141 Potassium 3.7 Chloride 105 Carbon Dioxide 30 Anion Gap 6 L BUN 9 D Creatinine 0.80 Estim Creat Clear Calc 81 Estimated GFR > 60 Glucose 119 H Calcium 8.9
[2023-01-08] MEDS: DOCUSATE SODIUM 100 MG CAPSULE PO (09:02)
[2023-01-08] MEDS: dilTIAZem HCL 30 MG TABLET PO ×2 (09:02→17:08)
[2023-01-08] MEDS: PANTOPRAZOLE 40 MG TABLET PO (09:02)
[2023-01-08 14:18] VITALS: BP 115/80; PULSE 63; RESP 16; TEMP 35.9; O2SAT 98
--- NOTE | 2023-01-08 16:34 | P.DS_ITS ---
DS: Admitting Diagnosis Discharge Date 01/08/2023 Admitting Diagnosis Pelvic pain DS: Discharge Diagnosis Discharge Diagnosis (1) Radiculopathy: Code(s): M54.10 - Radiculopathy, site unspecified Status: Acute (2) Pelvic pain: Code(s): R10.2 - Pelvic and perineal pain Status: Acute DS: Summary Hospital Course Reason for hospitalization: Patient was admitted with severe pain in lower pelvis 3 months out from a tension-free vaginal tape Hospital Course: Patient was washed over 48hours. She had a Urology consult which was considered negative. She had a neurology consult which an MRI was ordered showed no reasoning for her severe pelvic pain. At this point she is ready to go and will be sent home on Flexeril. 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 I believe the patient will eventually need release of that to the tension-free vaginal tape the left side. We will send her on Flexe ril she is told to rest she was not able to work as she lives children at work and will have this taken care of as soon as possible Time Spent with Patient Time attestation: Total time spent providing and/or coordinating discharge services: Discharge Plan Discharge Attending physician on discharge: Kevin Suarez Consulting providers: Danilo Barker; Alf Salomon Discharging Clinician: Kevin Suarez Patient Disposition: Home, Self-Care Activity: may shower and no straining Diet: heart healthy Patient Instructions: Antibiotic Form Stand Alone Forms: General Discharge Information Follow-up/Referrals: Kvein Suarez MD [Physician] - Discharge Medications: New cyclobenzaprine 10 mg tablet 10 mg PO TID PRN (Reason: muscle spasm) Qty: 20 0RF No Action omeprazole 20 mg capsule,delayed release(DR/EC) 40 mg PO DAILY famotidine 20 mg tablet 40 mg PO HS diltiazem HCl 30 mg tablet 30 mg PO BID hydrocodone-acetaminophen 5-325 mg tablet 1 - 2 tablet PO Q4-6H ondansetron 4 mg tablet,disintegrating 4 mg PO Q8H PRN (Reason: nausea and vomiting) Qty: 14 0RF Date of admission: 01/06/23 16:10 Primary Care Provider: EvanEnrique Admitting Provider: Dalla Liane,Kevin J. Attending physician on admission: Kevin Suarez Condition: Stable
== END 2023-01-08 17:20 | disposition home or self-care (01) ==
PROVIDERS: Urology; Admitting Provider Obstetrics & Gynecology; PCP Family Medicine; Visit Provider Obstetrics & Gynecology
DX: N31.9 Neuromuscular dysfunction of bladder, unspecified (principal); M47.817 Spondylosis without myelopathy or radiculopathy, lumbosacral region; M47.815 Spondylosis without myelopathy or radiculopathy, thoracolumbar region; M48.061 Spinal stenosis, lumbar region without neurogenic claudication; K21.9 Gastro-esophageal reflux disease without esophagitis; K31.819 Angiodysplasia of stomach and duodenum without bleeding; I10 Essential (primary) hypertension; R20.0 Anesthesia of skin; J98.11 Atelectasis; K58.9 Irritable bowel syndrome, unspecified; Z87.891 Personal history of nicotine dependence; R53.1 Weakness; F10.90 Alcohol use, unspecified, uncomplicated; K31.89 Other diseases of stomach and duodenum; Z79.891 Long term (current) use of opiate analgesic; Z79.899 Other long term (current) drug therapy; Z87.42 Personal history of other diseases of the female genital tract; Z90.89 Acquired absence of other organs; Z90.710 Acquired absence of both cervix and uterus; Z90.49 Acquired absence of other specified parts of digestive tract; Z82.49 Family history of ischemic heart disease and other diseases of the circulatory system
CPT/HCPCS: 36415; 72148; 74177; 80048; 83880; 85025; 96374; 96375; 96376; A9270; G0378; G0379; J2405; J2550; Q9967

== ENCOUNTER 2023-05-01 12:15 | Emergency (ER) | payer OTHER, SELFPAY ==
--- NOTE | 2023-05-01 12:21 | ED.URI ---
HPI - URI/Sore Throat General Chief Complaint: Upper Respiratory Infection Stated Complaint: Bodyaches/Fever Time Seen by Provider: 05/01/23 12:21 Source: patient Mode of arrival: ambulatory Limitations: no limitations History of Present Illness HPI Narrative: Brenda is a 42-year-old female patient presenting to the clinic today with complaints of body aches, fever, headache, sore throat, nasal congestion, and chills x2 days. She reports highest fever was 101-102. 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 MD elicited complaint: sore throat and nasal congestion Related Data Home Medications Medication Instructions Recorded Confirmed diltiazem HCl 30 mg tablet 30 mg PO BID 08/13/22 05/01/23 famotidine 20 mg tablet 40 mg PO HS 08/13/22 05/01/23 omeprazole 20 mg capsule,delayed 40 mg PO DAILY 08/13/22 05/01/23 release Allergies Allergy/AdvReac Type Severity Reaction Status Date / Time metoclopramide Allergy Severe Anaphylaxis Verified 05/01/23 12:38 Sulfa (Sulfonamide AdvReac Mild Hives Verified 05/01/23 12:38 Antibiotics) Review of Systems Review of Systems: Pertinent positives per HPI. Patient denies any rash, headache, visual changes, dizziness, cough, shortness of breath, chest pain, palpitations, nausea, vomiting, diarrhea, constipation, abdominal pain, or any urinary issues. [facility] Past Medical History Medical History Bronchitis GERD (gastroesophageal reflux disease) History of blood transfusion Hypertension IBS (irritable bowel syndrome) Premature ventricular contraction Watermelon stomach Surgical History Surgical History H/O: hysterectomy Hx of appendectomy Hx of cholecystectomy Hx of left knee surgery Hx of spinal surgery Family History Family History Father Acute myocardial infarction Hypertension Unknown No problems noted. Grandparent Carcinoma of colon Diabetes mellitus Sibling Hypertension Social History Social History Smoking packs per day: 1 Smoking cigarettes per day: 20.0 Years smoked: 15 Smoking pack-years: 15.00 Smoking status: Former smoker Tobacco type: cigarettes Smoking end date: 05/04/18 Alcohol intake: current Drinks per week: 2 Alcohol use details: 2/MONTH Substance use: never Substance use type: does not use Lack of Transportation: No Lack of Food: Never True Current Housing: I Have Housing Concerned About Future Housing: No Difficulty Paying Gas/Electric Bills: No Difficulty Paying for Meds: No Currently Unemployed: No Education: Associate Degree Difficulty w/ Childcare or Family Care: No Living arrangements: with family Gender identity (if verbalized by the patient): Female Spiritual care concerns: No Comments At the time of my signature, I reviewed and agree with the nursing past medical, surgical, social, and family history. There is no relevant family history pertinent to the patient complaint. Exam Narrative: General: Well-developed, well nourished, in no apparent distress Head: Normocephalic, atraumatic Eyes: Pupils equally round and reactive to light bilaterally, EOM intact, sclera and conjunctive clear, no discharge, lids normal Ears: TMs intact and clear, ear canals clear, no drainage, grossly hearing normal. Nose: Nares patent, clear nasal discharge, no inflammation, no sinus tenderness. Mouth: Oral pharynx red without lesions or masses, good dentition, MMM. Neck: Supple, trachea midline, no enlargement of anterior or posterior cervical nodes, no thyroid masses or goiter palpable. Cardio: Regular rate and rhythm, s1 and s2 normal, no murmur appreciated. Resp: Clear to auscultation bilaterally, no rhonc
[2023-05-01 12:24] VITALS: BP 126/86; PULSE 72; RESP 16; TEMP 36.5; O2SAT 100
== END 2023-05-01 12:59 | disposition home or self-care (01) ==
PROVIDERS: Emergency Provider Nurse Practitioner Family; PCP Family Medicine
DX: B34.9 Viral infection, unspecified (principal); J06.9 Acute upper respiratory infection, unspecified; J02.9 Acute pharyngitis, unspecified; Z20.822 Contact with and (suspected) exposure to COVID-19; Z87.891 Personal history of nicotine dependence; K21.9 Gastro-esophageal reflux disease without esophagitis; I10 Essential (primary) hypertension
CPT/HCPCS: 87081; 87426; 87804; 87880; 99213; C9803; G0463

== ENCOUNTER 2023-05-17 10:07 | Emergency (ER) | payer OTHER, SELFPAY ==
--- NOTE | 2023-05-17 10:12 | ED.URI ---
HPI - URI/Sore Throat General Chief Complaint: Upper Respiratory Infection Stated Complaint: Sore Throat,Cough,Congestion Time Seen by Provider: 05/17/23 10:12 Source: patient, RN notes reviewed and old records reviewed Mode of arrival: ambulatory Limitations: no limitations History of Present Illness HPI Narrative: 42-year-old female presents to the [facility] with complaints of cough, congestion, sore throat, body aches. 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 ? Reports fevers yesterday Related Data Home Medications Medication Instructions Recorded Confirmed diltiazem HCl 30 mg tablet 30 mg PO BID 08/13/22 05/17/23 famotidine 20 mg tablet 40 mg PO HS 08/13/22 05/17/23 omeprazole 20 mg capsule,delayed 40 mg PO DAILY 08/13/22 05/17/23 release Allergies Allergy/AdvReac Type Severity Reaction Status Date / Time metoclopramide Allergy Severe Anaphylaxis Verified 05/17/23 10:13 Sulfa (Sulfonamide AdvReac Mild Hives Verified 05/17/23 10:13 Antibiotics) Review of Systems Review of Systems: All systems reviewed & are unremarkable except as noted in HPI and below Constitutional: Constitutional: Reports no additional constitutional complaints Eyes: Eyes: Reports no additional eye complaints ENT: Reports as per HPI and Reports sore throat Cardiovascular: Cardiovascular: Reports no additional cardiovascular complaints, Denies chest pain and Denies dyspnea Respiratory: Respiratory: Reports no additional respiratory complaints, Denies chest congestion, Denies cough and Denies dyspnea Gastrointestinal: Gastrointestinal: Reports no additional gastrointestinal complaints, Denies abdominal pain, Denies nausea and Denies vomiting Musculoskeletal: Musculoskeletal: Reports no additional musculoskeletal complaints Integumentary/Breasts: Skin/Breast: Reports system reviewed and no additional complaints, except as docu Neurologic: Reports system reviewed and no additional complaints, except as documented Psychiatric: Psychiatric: Reports no additional psychiatric complaints Allergic/Immunologic: Allergic/Immunologic: Reports no additional allergic/immunologic complaints [facility] Past Medical History Medical History Bronchitis GERD (gastroesophageal reflux disease) History of blood transfusion Hypertension IBS (irritable bowel syndrome) Premature ventricular contraction Watermelon stomach Surgical History Surgical History H/O: hysterectomy Hx of appendectomy Hx of cholecystectomy Hx of left knee surgery Hx of spinal surgery Family History Family History Father Acute myocardial infarction Hypertension Unknown No problems noted. Grandparent Carcinoma of colon Diabetes mellitus Sibling Hypertension Social History Social History Smoking packs per day: 1 Smoking cigarettes per day: 20.0 Years smoked: 15 Smoking pack-years: 15.00 Smoking status: Former smoker Tobacco type: cigarettes Smoking end date: 05/04/18 Alcohol intake: current Drinks per week: 2 Alcohol use details: 2/MONTH Substance use: never Substance use type: does not use Lack of Transportation: No Lack of Food: Never True Current Housing: I Have Housing Concerned About Future Housing: No Difficulty Paying Gas/Electric Bills: No Difficulty Paying for Meds: No Currently Unemployed: No Education: Associate Degree Difficulty w/ Childcare or Family Care: No Living arrangements: with family Gender identity (if verbalized by the patient): Female Spiritual care concerns: No Comments At the time of my signature, I reviewed and agree with the nursing past medical, surgical, social, and family history. There is no relevant family history pertine
[2023-05-17 10:16] VITALS: BP 131/88; PULSE 75; RESP 18; TEMP 36.8; O2SAT 100
== END 2023-05-17 10:36 | disposition home or self-care (01) ==
PROVIDERS: Emergency Provider Nurse Practitioner; PCP Family Medicine
DX: R09.82 Postnasal drip (principal); J06.9 Acute upper respiratory infection, unspecified; H65.02 Acute serous otitis media, left ear; Z20.822 Contact with and (suspected) exposure to COVID-19; Z87.891 Personal history of nicotine dependence; K21.9 Gastro-esophageal reflux disease without esophagitis; I10 Essential (primary) hypertension
CPT/HCPCS: 87081; 87426; 87804; 87880; 99213; G0463

== ENCOUNTER 2023-05-31 20:36 | Emergency (ER) | payer OTHER, SELFPAY ==
--- NOTE | ~2023-05-31 | CT_ITS ---
EXAMINATION: CT facial bones wo con DATE: 05/31/2023 21:27 INDICATION: Facial injury, nose bleed . TECHNIQUE: Computed tomography (CT) of the facial bones and maxillofacial region was performed withou t intravenous contrast. Automated exposure control and iterative reconstruction technique were employ ed. The dose-length product was 294.67 mGy-cm. COMPARISON: None. FINDINGS: Soft Tissues: Soft tissue swelling over the nose. Facial bones: Mildly depressed anterior nasal bone fracture. No lytic or blastic process. Eyes: The globes are intact. The soft tissue planes of the orbits are maintained. Paranasal Sinuses: Mild right frontal mucosal thickening, the remaining aerated spaces are clear. Foreign Bodies: No radiopaque foreign bodies. Other Findings: None. IMPRESSION: Mildly depressed anterior nasal bone fracture. Reviewed, dictated and finalized at location [facility]
[2023-05-31 20:54] VITALS: BP 119/79; PULSE 103; RESP 20; TEMP 36.9; O2SAT 100
--- NOTE | 2023-05-31 22:15 | ED.GENADULT ---
HPI - General Adult General Chief complaint: Head Injury Stated complaint: head injury Time Seen by Provider: 05/31/23 21:51 Source: patient Mode of arrival: ambulatory Limitations: no limitations History of Present Illness HPI narrative: This is a 42-year-old female who presents to the ED with chief complaint of facial injury occurring just prior to arrival. Patient states she was playing with her dog who is a big mastiff. He accidentally jumped up quickly and his head hit her nose. She felt a pop in the nose and had immediate pain there.. Denies any LOC or further sites of pain. Denies numbness, weakness, vision change. Related Data Home Medications Medication Instructions Recorded Confirmed diltiazem HCl 30 mg tablet 30 mg PO BID 08/13/22 05/17/23 famotidine 20 mg tablet 40 mg PO HS 08/13/22 05/17/23 omeprazole 20 mg capsule,delayed 40 mg PO DAILY 08/13/22 05/17/23 release Allergies Allergy/AdvReac Type Severity Reaction Status Date / Time metoclopramide Allergy Severe Anaphylaxis Verified 05/31/23 21:55 Sulfa (Sulfonamide AdvReac Mild Hives Verified 05/31/23 21:55 Antibiotics) Review of Systems Review of Systems: All systems as dictated in [facility] Past Medical History Medical History Bronchitis GERD (gastroesophageal reflux disease) History of blood transfusion Hypertension IBS (irritable bowel syndrome) Premature ventricular contraction Watermelon stomach Surgical History Surgical History H/O: hysterectomy Hx of appendectomy Hx of cholecystectomy Hx of left knee surgery Hx of spinal surgery Family History Family History Father Acute myocardial infarction Hypertension Unknown No problems noted. Grandparent Carcinoma of colon Diabetes mellitus Sibling Hypertension Social History Social History Smoking packs per day: 1 Smoking cigarettes per day: 20.0 Years smoked: 15 Smoking pack-years: 15.00 Smoking status: Former smoker Tobacco type: cigarettes Smoking end date: 05/04/18 Alcohol intake: current Drinks per week: 2 Alcohol use details: 2/MONTH Substance use: never Substance use type: does not use Lack of Transportation: No Lack of Food: Never True Current Housing: I Have Housing Concerned About Future Housing: No Difficulty Paying Gas/Electric Bills: No Difficulty Paying for Meds: No Currently Unemployed: No Education: Associate Degree Difficulty w/ Childcare or Family Care: No Living arrangements: with family Gender identity (if verbalized by the patient): Female Spiritual care concerns: No Exam Narrative: GENERAL: Well-appearing, well-nourished, and in no acute distress. HEAD: Normocephalic, atraumatic. EYES: PERRLA and EOMI. ENT: Nasal swelling present. No deformity. Mild 0.5 cm superficial laceration to the bridge of the nose that is healed. Nares clear, no rhinorrhea or epistaxis. Mucous membranes moist. Oropharynx without tonsillar hypertrophy exudate or other lesions. NECK: Supple. No adenopathy or masses. CHEST: No respiratory distress. Clear to auscultation. No wheezes rales or rhonchi HEART: Regular rate and rhythm. No murmur heard. Normal peripheral pulses. ABDOMEN: Soft, nontender, nondistended, normal active bowel sounds. MSK: Normal range of motion. No edema. SKIN: Warm, dry, no rash. NEURO: Alert and oriented x3. No focal deficits. PSYCH: Normal mood and affect. Course Vital Signs Vital signs: Vital Signs Temperature 98.4 F 05/31/23 20:54 Pulse Rate 103 H 05/31/23 20:54 Respiratory Rate 20 05/31/23 20:54 Blood Pressure 119/79 05/31/23 20:54 Pulse Oximetry 100 05/31/23 20:54 Oxygen Delivery Room Air 05/31/23 20:54 Temperature
[2023-05-31] MEDS: ONDANSETRON HCL ODT 4 MG TABLET PO (22:20)
[2023-05-31] MEDS: HYDROcodone/acetaminophen (*CRX) 5-325 MG TABLET 1 TAB PO (22:20)
== END 2023-05-31 22:33 | disposition home or self-care (01) ==
PROVIDERS: Emergency Provider Physician Assistant; PCP Family Medicine
DX: S02.2XXA Fracture of nasal bones, initial encounter for closed fracture (principal); K21.9 Gastro-esophageal reflux disease without esophagitis; I10 Essential (primary) hypertension; K58.9 Irritable bowel syndrome, unspecified; Z87.891 Personal history of nicotine dependence; Z90.710 Acquired absence of both cervix and uterus; Z90.49 Acquired absence of other specified parts of digestive tract; W54.1XXA Struck by dog, initial encounter
CPT/HCPCS: 70486; 99284; A9270

== ENCOUNTER 2023-06-16 12:01 | Emergency (ER) | payer OTHER, SELFPAY ==
--- NOTE | 2023-06-16 12:07 | ED.URI ---
HPI - URI/Sore Throat General Chief Complaint: Upper Respiratory Infection Stated Complaint: bilateral ear pain,congestion Time Seen by Provider: 06/16/23 12:07 Source: patient Mode of arrival: ambulatory Limitations: no limitations History of Present Illness HPI Narrative: Patient is a 42-year-old female who presents with several days of ear pain and congestion. Patient broke her nose 2 weeks ago and has not been able to blow nose like normal. Patient states last night she woke up with headache, fever of 101 sore throat,, fatigue and body aches. Patient has been taking ibuprofen, Tylenol, Benadryl. Related Data Home Medications Medication Instructions Recorded Confirmed diltiazem HCl 30 mg tablet 30 mg PO TID 08/13/22 06/16/23 famotidine 20 mg tablet 40 mg PO HS 08/13/22 06/16/23 omeprazole 20 mg capsule,delayed 40 mg PO DAILY 08/13/22 06/16/23 release acetaminophen 500 mg tablet 500 mg PO Q6H PRN Pain (Scale 06/03/23 06/16/23 (Tylenol Extra Strength) Score 4-6) ibuprofen 200 mg tablet 200 mg PO Q6H PRN Pain (Scale 06/03/23 06/16/23 Score 4-6) Allergies Allergy/AdvReac Type Severity Reaction Status Date / Time metoclopramide Allergy Severe Anaphylaxis Verified 06/16/23 12:13 Sulfa (Sulfonamide AdvReac Mild Hives Verified 06/16/23 12:13 Antibiotics) Review of Systems Review of Systems: All systems reviewed & are unremarkable except as noted in HPI and below Constitutional: Constitutional: Reports body ache(s), Denies chills, Reports fatigue, Reports fever(s), Reports headache(s), Denies malaise and Denies weakness Eyes: Eyes: Denies blurry vision, Denies itchy eyes and Denies loss of vision ENT: Denies otalgia, Denies headache(s), Reports nasal congestion, Denies sinus pain and Reports sore throat Cardiovascular: Cardiovascular: Denies chest pain, Denies irregular heart rhythm and Denies dyspnea Respiratory: Respiratory: Denies cough and Denies dyspnea Gastrointestinal: Gastrointestinal: Denies abdominal pain, Denies diarrhea, Denies nausea and Denies vomiting Musculoskeletal: Musculoskeletal: Denies back pain, Denies myalgias and Denies arthralgias Integumentary/Breasts: Skin/Breast: Denies pruritus and Denies rash Neurologic: Denies headache(s), Denies loss of vision and Denies weakness Psychiatric: Psychiatric: Reports no additional psychiatric complaints Endocrine: Endocrine: Denies fatigue Allergic/Immunologic: Allergic/Immunologic: Denies itchy eyes PMFSH Past Medical History Medical History Bronchitis GERD (gastroesophageal reflux disease) History of blood transfusion Hypertension IBS (irritable bowel syndrome) Premature ventricular contraction Watermelon stomach Surgical History Surgical History H/O: hysterectomy Hx of appendectomy Hx of cholecystectomy Hx of left knee surgery Hx of spinal surgery Family History Family History Father Acute myocardial infarction Hypertension Heart disease Unknown No problems noted. Grandparent Carcinoma of colon Diabetes mellitus Malignant neoplasm of prostate Heart disease Thyroid disorder Sibling Hypertension Grandparent Heart disease Social History Social History Smoking packs per day: 1 Smoking cigarettes per day: 20.0 Years smoked: 15 Smoking pack-years: 15.00 Smoking status: Former smoker Tobacco type: cigarettes Smoking end date: 05/04/18 Alcohol intake: current Drinks per week: 2 Alcohol use details: 2/MONTH Substance use: never Substance use type: does not use Lack of Transportation: No Lack of Food: Never True Current Housing: I Have Housing Concerned About Future Housing: No Difficulty Paying Gas/Electric Bills: No Difficulty Paying for Meds: N
[2023-06-16 12:12] VITALS: BP 115/80; PULSE 93; RESP 16; TEMP 36.9; O2SAT 98
== END 2023-06-16 12:42 | disposition home or self-care (01) ==
PROVIDERS: Emergency Provider Nurse Practitioner Family; PCP Family Medicine
DX: U07.1 COVID-19 (principal); I10 Essential (primary) hypertension; Z87.891 Personal history of nicotine dependence
CPT/HCPCS: 87426; 87804; 99213; G0463